=== PATIENT | male | born 1955 | race Caucasian/White ===

== ENCOUNTER 2017-05-30 14:46 | Inpatient (IN) | payer OTHER ==
[~2017-05-30] VITALS: Ht 175.3 cm; Wt 84.1 kg
[2017-05-30] VITALS (12 sets, daily range): BP systolic 112–149; BP diastolic 63–78; PULSE 76–91; RESP 16–20; TEMP 97.5–98.9; O2SAT 98–100
[~2017-05-30 14:46] MED LIST: HUMALOG; LANTUSP SQ; LEVO.125
[2017-05-30] MEDS ORDERED: IOHEXOL 350 MG/ML 10 ML VIAL (for RAD DIAG) IVCONTRAST ONE (14:47)
[2017-05-30 15:40] LABS: AUTOMATED NEUTROPHIL # 1.3 TH/MM3 (1.8-7.7); BASOPHIL % 0.4 % (0.0-2.0); EOSINOPHIL # 0.1 TH/MM3 (0-0.4); EOSINOPHIL % 2.8 % (0.0-4.0); LYMPH % 47.5 % (9.0-44.0); LYMPHOCYTE # 1.3 TH/MM3 (1.0-4.8); MEAN CELL VOLUME 119.9 FL (80.0-100.0); MEAN CORPUSCULAR HEMOGLOBIN 41.5 PG (27.0-34.0); MEAN CORPUSCULAR HGB CONC 34.6 % (32.0-36.0); MEAN PLATELET VOLUME 7.8 FL (7.0-11.0); MONO % 2.8 % (0.0-8.0); MONOCYTE # 0.1 TH/MM3 (0-0.9); NEUT % 46.5 % (16.0-70.0); PLATELET COUNT 127 TH/MM3 (150-450); RED BLOOD COUNT 1.55 MIL/MM3 (4.50-5.90); RED CELL DISTRIBUTION WIDTH 17.9 % (11.6-17.2); WHITE BLOOD COUNT 2.7 TH/MM3 (4.0-11.0)
[2017-05-30 15:53] LABS: HEMOGLOBIN 6.4 GM/DL (13.0-17.0); INTERNATIONAL NORMALIZED RATIO 1.1 RATIO; PROTHROMBIN TIME - PATIENT 11.3 SEC (9.8-11.6)
[2017-05-30 15:54] LABS: HEMATOCRIT 18.6 % (39.0-51.0)
[2017-05-30 16:11] LABS: ALBUMIN 3.4 GM/DL (3.4-5.0); AST (GOT) 77 U/L (15-37); BICARBONATE 26.2 MEQ/L (21.0-32.0); BLOOD UREA NITROGEN 11 MG/DL (7-18); CALCIUM 7.8 MG/DL (8.5-10.1); CHLORIDE 111 MEQ/L (98-107); CREATININE 0.93 MG/DL (0.60-1.30); GLOMERULAR FILTRATION RATE 83 ML/MIN (>89); GLUCOSE,RANDOM 143 MG/DL (74-106); LIPASE 70 U/L (73-393); SODIUM (NA) 143 MEQ/L (136-145)
[2017-05-30 16:15] LABS: ALKALINE PHOSPHATASE 73 U/L (45-117); ALT (GPT) 52 U/L (12-78); TOTAL BILIRUBIN ADULT 1.2 MG/DL (0.2-1.0); TOTAL PROTEIN 5.7 GM/DL (6.4-8.2)
[2017-05-30] MEDS ORDERED: SODIUM CHLOR 0.9% 250 ML INJ 250 ML IV ONE (16:15)
[2017-05-30] MEDS ORDERED: HUMALOG SQ (16:27)
[2017-05-30] MEDS ORDERED: LEVO-86 PO (16:27)
[2017-05-30] MEDS ORDERED: LANTUS2P SQ (16:27)
[2017-05-30 16:40] LABS: KERATOCYTES 1+ (NORMAL); OVALOCYTES 1+ (NORMAL)
--- NOTE | 2017-05-30 17:45 | RADRPT ---
EXAM DATE/TIME: 05/30/2017 17:06 [facility] COMPARISON: No previous studies available for comparison. INDICATIONS : Patient complains of short of breath. IV CONTRAST: 94 cc Omnipaque 350 (iohexol) IV ; Cumulative dose for multiple exams. RADIATION DOSE: 5.23 CTDIvol (mGy) ; Combined studies - Thorax/Abdomen/Pelvis MEDICAL HISTORY : Diabetes mellitus type 1. SURGICAL HISTORY : None. ENCOUNTER: Initial ACUITY: 1 day PAIN SCALE: 0/10 LOCATION: chest TECHNIQUE: Volumetric scanning of the chest was performed. Using automated exposure control and adjustment of t he mA and/or kV according to patient size, radiation dose was kept as low as reasonably achievable to obtain optimal diagnostic quality images. DICOM format image data is available electronically for review and comparison. Follow-up recommendations for detected pulmonary nodules are based at a minimum on nodule size and pa tient risk factors according to Fleischner Society Guidelines. FINDINGS: LUNGS: There is no consolidation or pneumothorax. No concerning pulmonary nodule is visualized. PLEURA: There is no pleural thickening or pleural effusion. MEDIASTINUM: The heart and great vessels demonstrate no acute abnormality. There is no mediastinal or hilar lymph adenopathy. AXILLAE: Within normal limits. No lymphadenopathy. SKELETAL: Within normal limits for patient age. MISCELLANEOUS: The visualized upper abdominal organs demonstrate no acute abnormality. CONCLUSION: Negative for an acute process. I do not see an etiology for the SOB Onesimo Koo MD FACR on May 30, 2017 at 17:41 Board Certified Radiologist. This report was verified electronically.
--- NOTE | 2017-05-30 17:46 | RADRPT ---
EXAM DATE/TIME: 05/30/2017 17:06 [facility] COMPARISON: No previous studies available for comparison. INDICATIONS : Patient complains of short of breath, general wekness. IV CONTRAST: 94 cc Omnipaque 350 (iohexol) IV ; Cumulative dose for multiple exams. ORAL CONTRAST: No oral contrast ingested. RADIATION DOSE: 5.23 CTDIvol (mGy) ; Combined studies - Thorax/Abdomen/Pelvis MEDICAL HISTORY : Diabetes mellitus type 1. SURGICAL HISTORY : None. ENCOUNTER: Initial ACUITY: 1 day PAIN SCALE: 0/10 LOCATION: abdomen TECHNIQUE: Volumetric scanning of the abdomen and pelvis was performed. Using automated exposure control and ad justment of the mA and/or kV according to patient size, radiation dose was kept as low as reasonably achievable to obtain optimal diagnostic quality images. DICOM format image data is available electro nically for review and comparison. FINDINGS: LOWER LUNGS: The visualized lower lungs are clear. LIVER: Homogeneous density without lesion. There is no dilation of the biliary tree. No calcified gallston es. SPLEEN: Normal size without lesion. PANCREAS: Within normal limits. KIDNEYS: Normal in size and shape. There is no mass, stone or hydronephrosis. ADRENAL GLANDS: Within normal limits. VASCULAR: There is no aortic aneurysm. BOWEL/MESENTERY: The stomach, small bowel, and colon demonstrate no acute abnormality. There is no free intraperitone al air or fluid. ABDOMINAL WALL: Within normal limits. RETROPERITONEUM: There is no lymphadenopathy. BLADDER: No wall thickening or mass. REPRODUCTIVE: Small hydrocele on the left. INGUINAL: There is no lymphadenopathy or hernia. MUSCULOSKELETAL: Within normal limits for patient age. CONCLUSION: Negative for acute process. Onesimo Koo MD FACR on May 30, 2017 at 17:42 Board Certified Radiologist. This report was verified electronically.
--- NOTE | 2017-05-30 17:58 | PD ---
HPI Chief Complaint: Abnormal Results Time Seen by Provider: 15:59 Travel History International Travel<30 days: No Contact w/Intl Traveler<30days: No Traveled to known affect area: No History of Present Illness HPI 61-year-old male that presents to the ED for evaluation of low hemoglobin. Per patient he was sent here by Dr. Del Rio for evaluation of anemia. His never been told that he's had this in the past. He denies any bleeding of any kind. Denies any changes in stool. Per patient about a month ago he develops of cold- like symptoms that improved but he continued to have the weakness and shortness of breath with exertion. Per patient he had workup done by his primary care doctor and was told today that he needed to come here to get a blood transfusion. He denies any abdominal pain. No urinary or bowel movement issues. No cough or runny nose. Denies any chest pain versus having some shortness of breath with exertion. Feels some dizziness. Has no allergies to medication. No other medical issues. No headache. No blurred vision and double vision. PFSH Past Medical History Diabetes: Yes Patient Takes Glucophage: No Diminished Hearing: Yes (hearing imparment) Endocrine: Yes Medical other: Yes Immunizations Current: Yes Thyroid Disease: Yes Tetanus Vaccination: > 5 Years Influenza Vaccination: No Past Surgical History Other Surgery: Yes (STEEL PLATE FOOT FX) Social History Alcohol Use: No Tobacco Use: No Substance Use: No Allergies-Medications (Allergen,Severity, Reaction): Coded Allergies: No Known Allergies (Verified Adverse Reaction, Unknown, 05/30/17) Reported Meds & Prescriptions Reported Meds & Active Scripts Active Reported Humalog Inj (Insulin Human Lispro) 1,000 Unit/10 Ml Vial 1-9 Units SQ ACHS Max dose at bedtime:( )units; sugars< 70,(0)units; sugars 150-199,(1)unit; sugars 200-249,(3)units; sugars 250-299,(5)units; sugars 300-349,(7)units; sugars more than 349,(9)units. Synthroid (Levothyroxine Sodium) 137 Mcg Tab 137 Mcg PO DAILY Lantus Inj (Insulin Glargine) 1,000 Unit/10 Ml Vial 20 Units SQ DAILY Review of Systems Except as stated in HPI: all other systems reviewed are Neg Physical Exam Narrative GENERAL: SKIN: Warm and dry. HEAD: Atraumatic. Normocephalic. EYES: Pupils equal and round. No scleral icterus. No injection or drainage. ENT: No nasal bleeding or discharge. Mucous membranes pink and moist. Tongue is midline. No uvula deviation. NECK: Trachea midline. No JVD. CARDIOVASCULAR: Regular rate and rhythm. No murmurs, S3, S4. RESPIRATORY: No accessory muscle use. Clear to auscultation. Breath sounds equal bilaterally. GASTROINTESTINAL: Abdomen soft, non-tender, nondistended. Hepatic and splenic margins not palpable. MUSCULOSKELETAL: Extremities without clubbing, cyanosis, or edema. No obvious deformities. Full range of motion of the upper and lower extremities bilaterally. 2+ pulses bilaterally. NEUROLOGICAL: Awake and alert. No obvious cranial nerve deficits. Motor grossly within normal limits. Five out of 5 muscle strength in the arms and legs. Normal speech. PSYCHIATRIC: Appropriate mood and affect; insight and judgment normal. Data Data Last Documented VS Vital Signs Date Time Temp Pulse Resp B/P (MAP) Pulse Ox O2 Delivery O2 Flow Rate FiO2 05/30/17 17:00 97.8 82 18 112/66 (81) 100 Room Air Orders Orders Complete Blood Count With Diff (05/30/17 15:10) Comprehensive Metabolic Panel (05/30/17 15:10) Lipase (05/30/17 15:10) Prothrombin Time / Inr (Pt) (05/30/17 15:10) Act Partial Throm Time (Ptt) (05/30/17 15:10) Type And Screen (05/30/17 15:10) Ct Thorax/ Chest W Iv Contrast (05/30/17 16:11) Ct Abd/Pel W Iv Contrast(Rout) (05/30/17 16:11) Red Blood Cells (Rbc) (05/30/17 16:12) Blood Product Administration (05/30/17 16:12) Sodium Chlor 0.9% 250 Ml Inj (Ns 250 Ml (05/30/17 16:15) Iohexol 350 Inj (Omnipaque 350 Inj) (05/30/17 14:47) Admit Order (Ed Use Only) (05/30/17 18:07) Labs Laboratory Tests Test 05/30/17 15:19 White Blood Count 2.7 TH/MM3 Red Blood Count 1.55 MIL/MM3 Hemoglobin 6.4 GM/DL Hematocrit 18.6 % Mean Corpuscular Volume 119.9 FL Mean Corpuscular Hemoglobin 41.5 PG Mean Corpuscular Hemoglobin Concent 34.6 % Red Cell Distribution Width 17.9 % Platelet Count 127 TH/MM3 Mean Platelet Volume 7.8 FL Neutrophils (%) (Auto) 46.5 % Lymphocytes (%) (Auto) 47.5 % Monocytes (%) (Auto) 2.8 % Eosinophils (%) (Auto) 2.8 % Basophils (%) (Auto) 0.4 % Neutrophils # (Auto) 1.3 TH/MM3 Lymphocytes # (Auto) 1.3 TH/MM3 Monocytes # (Auto) 0.1 TH/MM3 Eosinophils # (Auto) 0.1 TH/MM3 Basophils # (Auto) 0.0 TH/MM3 CBC Comment AUTO DIFF Differential Comment AUTO DIFF CONFIRMED Platelet Estimate LOW Platelet Morphology Comment NORMAL Ovalocytes 1+ Keratocytes 1+ Prothrombin Time 11.3 SEC Prothromb Time International Ratio 1.1 RATIO Activated Partial Thromboplast Time 21.2 SEC Blood Urea Nitrogen 11 MG/DL Creatinine 0.93 MG/DL Random Glucose 143 MG/DL Total Protein 5.7 GM/DL Albumin 3.4 GM/DL Calcium Level 7.8 MG/DL Alkaline Phosphatase 73 U/L Aspartate Amino Transf (AST/SGOT) 77 U/L Alanine Aminotransferase (ALT/SGPT) 52 U/L Total Bilirubin 1.2 MG/DL Sodium Level 143 MEQ/L Potassium Level 3.7 MEQ/L Chloride Level 111 MEQ/L Carbon Dioxide Level 26.2 MEQ/L Anion Gap 6 MEQ/L Estimat Glomerular Filtration Rate 83 ML/MIN Lipase 70 U/L [facility] Medical Decision Making Medical Screen Exam Complete: Yes Emergency Medical Condition: Yes Medical Record Reviewed: Yes Interpretation(s) CBC & BMP Diagram 05/30/17 15:19 Total Protein 5.7 L, Albumin 3.4, Calcium Level 7.8 L, Alkaline Phosphatase 73, Aspartate Amino Transf (AST/SGOT) 77 H, Alanine Aminotransferase (ALT/SGPT) 52, Total Bilirubin 1.2 H Last Impressions Chest CT 05/30/17 1611 Signed Impressions: Service Date/Time: Tuesday, May 30, 2017 17:06 - CONCLUSION: Negative for an acute process. I do not see an etiology for the SOB Onesimo Koo MD FACR Abdomen/Pelvis CT 05/30/17 1611 Signed Impressions: Service Date/Time: Tuesday, May 30, 2017 17:06 - CONCLUSION: Negative for acute process. Onesimo Koo MD FACR Differential Diagnosis Anemia versus symptomatic anemia versus GI bleed versus normal exam Narrative Course 61-year-old male that presents to the ED for evaluation of anemia. Patient was properly examined and was found to have signs and symptoms consistent with symptomatic anemia. Labs and imaging were ordered. Dr. Sigala wanted CAT scan done. This was ordered. Blood was ordered. This time her conditions for admission for further evaluation. Patient agrees with this. Dr Quezada agrees to admission [facility] Point of Care Internal Pos. & Neg. Controls: Passed Fecal Specimen Occult Blood: Negative Diagnosis Primary Impression: Symptomatic anemia Admitting Information Admitting Physician Requests: Admit Chance Dee May 30, 2017 17:57
--- NOTE | 2017-05-30 20:48 | HHI.HP ---
HPI Service [facility] Hospitalists Primary Care Physician Quintin Sigala MD Admission Diagnosis symptomatic anemia Chief Complaint: Anemia, fatigue, SOB Travel History International Travel<30 Days: No Contact w/Intl Traveler <30 Da: No Traveled to Known Affected Are: No History of Present Illness 61-year-old male with diabetes and hypothyroidism that presents to the ED for evaluation of low hemoglobin. Per patient he was sent here by Dr. Sigala for evaluation of anemia. Patient's hemoglobin was 7 and outpatient labs and he was reportedly asymptomatic. Has not been significantly anemic in the past.. He denies any bleeding of any kind. Denies any changes in stool. Per patient about a month ago he developed cold-like symptoms that improved but he continued to have the weakness and shortness of breath with exertion afterward which is unusual for him. Per patient he was told today that he needed to come here to get a blood transfusion. He denies any abdominal pain. No urinary or bowel movement issues. No cough or runny nose. Denies any chest pain, but has been having some shortness of breath with exertion. Feels some mild dizziness. Has no allergies to medication. No headache. No blurred vision and double vision. Denies regular use of alcohol or nonsteroidals. He is currently receiving packed red blood cell transfusion and appears comfortable. His only complaint presently is that he's hungry. Review of Systems Constitutional: COMPLAINS OF: Fatigue, Dizziness, DENIES: Diaphoretic episodes , Fever, Weight gain, Weight loss, Chills, Change in appetite, Night Sweats Endocrine: DENIES: Heat/cold intolerance, Polydipsia, Polyuria, Polyphagia Eyes: DENIES: Blurred vision, Diplopia, Eye inflammation, Eye pain, Vision loss , Photosensitivity, Double Vision Ears, nose, mouth, throat: DENIES: Tinnitus, Hearing loss, Vertigo, Nasal discharge, Oral lesions, Throat pain, Hoarseness, Ear Pain, Running Nose, Epistaxis, Sinus Pain, Toothache, Odynophagia Respiratory: COMPLAINS OF: Shortness of breath, DENIES: Apneas, Cough, Snoring , Wheezing, Hemoptysis, Sputum production Cardiovascular: COMPLAINS OF: Dyspnea on Exertion, DENIES: Chest pain, Palpitations, Syncope, PND, Lower Extremity Edema, Orthopnea, Claudication Gastrointestinal: DENIES: Abdominal pain, Black stools, Bloody stools, BRB per rectum, Constipation, Diarrhea, GERD, Nausea, Reflux, Vomiting, Difficulty Swallowing, Anorexia, See HPI Musculoskeletal: DENIES: Joint pain, Muscle aches, Stiffness, Joint Swelling, Back pain, Neck pain Integumentary: DENIES: Abnormal pigmentation, Nail changes, Pruritus, Rash Hematologic/lymphatic: DENIES: Bruising, Lymphadenopathy Immunologic/allergic: DENIES: Eczema, Urticaria Neurologic: DENIES: Abnormal gait, Headache, Localized weakness, Paresthesias, Seizures, Speech Problems, Tremor, Poor Balance Psychiatric: DENIES: Anxiety, Confusion, Mood changes, Depression, Hallucinations, Agitation, Suicidal Ideation, Homicidal Ideation, Delusions, History of Bipolar, History of Schizophrenia Past Family Social History Past Medical History Cervical degenerative disc disease Diabetes type 2 with long-term insulin use Fatigue Hypothyroidism Ischemic optic neuropathy right eye Lumbar radiculopathy Past Surgical History Right ankle surgery around 1990 Right cataract surgery Tooth extraction Vasectomy around 1999 Reported Medications Novolog Inj 1,000 Unit/10 Ml Vial 1-9 Units SQ ACHS Max dose at bedtime:( )units; sugars< 70,(0)units; sugars 150-199,(1)unit; sugars 200-249,(3)units; sugars 250-299,(5)units; sugars 300-349,(7)units; sugars more than 349,(9)units. 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 Alert and oriented. Cooperative. SKIN: No rashes, ecchymoses or lesions. Cool and dry. Specifically no petechiae. HEAD: Atraumatic. Normocephalic. No temporal or scalp tenderness. EYES: Pupils equal round and reactive. Extraocular motions intact. No scleral icterus. No injection or drainage. ENT: Nose without bleeding, purulent drainage or septal hematoma. Throat without erythema, tonsillar hypertrophy or exudate. Uvula midline. No petechiae. Airway patent. NECK: Trachea midline. No JVD or lymphadenopathy. Supple, nontender, no meningeal signs. CARDIOVASCULAR: Regular rate and rhythm without gallops, or rubs. Soft 1/6 systolic ejection murmur heard on left sternal border. RESPIRATORY: Clear to auscultation. Breath sounds equal bilaterally. No wheezes , rales, or rhonchi. GASTROINTESTINAL: Abdomen soft, non-tender, nondistended. No hepato-splenomegaly , or palpable masses. No guarding. MUSCULOSKELETAL: Extremities without clubbing, cyanosis, or edema. No joint tenderness, effusion, or edema noted. No calf tenderness. NEUROLOGICAL: Awake and alert. Cranial nerves II through XII intact. Motor and sensory grossly within normal limits. Five out of 5 muscle strength in all muscle groups. Normal speech. Laboratory Laboratory Tests Test 05/30/17 15:19 White Blood Count 2.7 Red Blood Count 1.55 Hemoglobin 6.4 Hematocrit 18.6 Mean Corpuscular Volume 119.9 Mean Corpuscular Hemoglobin 41.5 Mean Corpuscular Hemoglobin Concent 34.6 Red Cell Distribution Width 17.9 Platelet Count 127 Mean Platelet Volume 7.8 Neutrophils (%) (Auto) 46.5 Lymphocytes (%) (Auto) 47.5 Monocytes (%) (Auto) 2.8 Eosinophils (%) (Auto) 2.8 Basophils (%) (Auto) 0.4 Neutrophils # (Auto) 1.3 Lymphocytes # (Auto) 1.3 Monocytes # (Auto) 0.1 Eosinophils # (Auto) 0.1 Basophils # (Auto) 0.0 CBC Comment AUTO DIFF Differential Comment AUTO DIFF CONFIRMED Platelet Estimate LOW Platelet Morphology Comment NORMAL Ovalocytes 1+ Keratocytes 1+ Prothrombin Time 11.3 Prothromb Time International Ratio 1.1 Activated Partial Thromboplast Time 21.2 Blood Urea Nitrogen 11 Creatinine 0.93 Random Glucose 143 Total Protein 5.7 Albumin 3.4 Calcium Level 7.8 Alkaline Phosphatase 73 Aspartate Amino Transf (AST/SGOT) 77 Alanine Aminotransferase (ALT/SGPT) 52 Total Bilirubin 1.2 Sodium Level 143 Potassium Level 3.7 Chloride Level 111 Carbon Dioxide Level 26.2 Anion Gap 6 Estimat Glomerular Filtration Rate 83 Lipase 70 Result Diagram: 05/30/17 1519 05/30/17 1519 Imaging Last [address] 05/30/17 1611 Signed Impressions: Service Date/Time: Tuesday, May 30, 2017 17:06 - CONCLUSION: Negative for an acute process. I do not see an etiology for the SOB Onesimo Koo MD FACR Abdomen/Pelvis CT 05/30/171610 Signed Impressions: Service Date/Time: Tuesday, May 30, 2017 17:06 - CONCLUSION: Negative for acute process. Onesimo Koo MD FACR Caprini VTE Risk Assessment Caprini VTE Risk Assessment: Mod/High Risk (score >= 2) Caprini Risk Assessment Model Point Value = 1 Point Value = 2 Point Value = 3 Point Value = 5 Age 41-60 Minor surgery BMI > 25 kg/m2 Swollen legs Varicose veins or History of unexplained or recurrent spontaneous Oral contraceptives or hormone replacement Sepsis (< 1 month) Serious lung disease, including pneumonia (< 1 month) Abnormal pulmonary function Acute myocardial infarction Congestive heart failure (< 1 month) History of inflammatory bowel disease Medical patient at bed rest Age 61-74 Arthroscopic surgery Major open surgery (> 45 min) Laparoscopic surgery (> 45 min) Malignancy Confined to bed (> 72 hours) Immobilizing plaster cast Central venous access Age >= 75 History of VTE Family history of VTE Factor V Leiden Prothrombin 30058P Lupus anticoagulant Anticardiolipin antibodies Elevated serum homocysteine Heparin-induced thrombocytopenia Other congenital or acquired thrombophilia Stroke (< 1 month) Elective arthroplasty Hip, pelvis, or leg fracture Acute spinal cord injury (< 1 month) Prophylaxis Regimen Total Risk Factor Score Risk Level Prophylaxis Regimen 0-1 Low Early ambulation 2 Moderate Order ONE of the following: *Sequential Compression Device (SCD) *Heparin 5000 units SQ BID 3-4 Higher Order ONE of the following medications: *Heparin 5000 units SQ TID *Enoxaparin/Lovenox 40 mg SQ daily (WT < 150 kg, CrCl > 30 mL/min) *Enoxaparin/Lovenox 30 mg SQ daily (WT < 150 kg, CrCl > 10-29 mL/min) *Enoxaparin/Lovenox 30 mg SQ BID (WT < 150 kg, CrCl > 30 mL/min) AND/OR *Sequential Compression Device (SCD) 5 or more Highest Order ONE of the following medications: *Heparin 5000 units SQ TID (Preferred with Epidurals) *Enoxaparin/Lovenox 40 mg SQ daily (WT < 150 kg, CrCl > 30 mL/min) *Enoxaparin/Lovenox 30 mg SQ daily (WT < 150 kg, CrCl > 10-29 mL/min) *Enoxaparin/Lovenox 30 mg SQ BID (WT < 150 kg, CrCl > 30 mL/min) AND *Sequential Compression Device (SCD) Assessment and Plan Problem List: (1) Symptomatic anemia ICD Codes: D64.9 - Anemia, unspecified Status: Acute Plan: Question of etiology. Rectal exam negative for heme per ER provider. He has not had a colonoscopy in approximately 15 years per outside note review. Have GI see the patient but will also have hematology evaluation given the pancytopenia as GI likely not a primary source. Outpatient EMR review reveals hemoglobin of 12 in November 2016, 11 in January 2017 and 7 on May 27, 2017 (2) Pancytopenia ICD Codes: D61.818 - Other pancytopenia Status: Acute Plan: As above. 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 We'll provide low-dose basal insulin as well. (4) Hypothyroidism ICD Codes: E03.9 - Hypothyroidism, unspecified Status: Chronic Plan: TSH somewhat suppressed at 0.121 on recent labs however T4 is typically normal and managed by Endo. Check TSH and T4 here. Code Status full Discussed Condition With Patient, his and ER provider Physician Certification 2 Midnight Certification Type: Admission for Inpatient Services Order for Inpatient Services The services are ordered in accordance with Medicare regulations or non- Medicare payer requirements, as applicable. In the case of services not specified as inpatient-only, they are appropriately provided as inpatient services in accordance with the 2-midnight benchmark. Estimated LOS (days): 2 days is the estimated time the patient will need to remain in the hospital, assuming treatment plan goals are met and no additional complications. Post-Hospital Plan: Home Rojas Quezada MD PhD May 30, 2017 20:48
[2017-05-30] MEDS: INSULIN ASPART SUPPLEMENTAL SCALE SQ SCH (21:00)
[2017-05-30] MEDS: INSULIN DETEMIR 100 UNITS/ML VIAL SQ SCH (21:00)
[2017-05-30] MEDS ORDERED: DEXTROSE 50% IN WATER 50 ML VIAL(D50) IV PUSH PRN (21:15)
[2017-05-30] MEDS ORDERED: GLUCAGON 1 MG/ML VIAL OTHER PRN (21:15)
[2017-05-30 22:00] LABS: FREE T4 1.4 NG/DL (0.76-1.46)
[2017-05-30 22:10] LABS: RETIC # 43.3 MIL/L (20.0-150.0)
[2017-05-30 22:17] LABS: FOLATE GREATER THAN 20.0 NG/ML (3.1-17.5)
[2017-05-30 22:30] LABS: LDH SERUM 3181 U/L (87-241)
[2017-05-31] VITALS (10 sets, daily range): BP systolic 119–153; BP diastolic 62–85; PULSE 67–78; RESP 14–20; TEMP 97.8–98.9; O2SAT 94–99
[2017-05-31] MEDS: LEVOTHYROXINE SODIUM 112 MCG TAB PO SCH (05:05)
[2017-05-31] MEDS: LEVOTHYROXINE SODIUM 25 MCG TAB PO SCH (05:06)
[2017-05-31] MEDS: INSULIN ASPART SUPPLEMENTAL SCALE SQ SCH ×4 (08:00→21:20)
[2017-05-31 08:34] LABS: AUTOMATED NEUTROPHIL # 1.4 TH/MM3 (1.8-7.7); BASOPHIL % 0.1 % (0.0-2.0); EOSINOPHIL # 0.2 TH/MM3 (0-0.4); EOSINOPHIL % 4.5 % (0.0-4.0); HEMATOCRIT 23.8 % (39.0-51.0); HEMOGLOBIN 8.5 GM/DL (13.0-17.0); LYMPH % 50.3 % (9.0-44.0); LYMPHOCYTE # 1.7 TH/MM3 (1.0-4.8); MEAN CELL VOLUME 101.7 FL (80.0-100.0); MEAN CORPUSCULAR HEMOGLOBIN 36.1 PG (27.0-34.0); MEAN CORPUSCULAR HGB CONC 35.5 % (32.0-36.0); MEAN PLATELET VOLUME 8.2 FL (7.0-11.0); MONO % 2.7 % (0.0-8.0); MONOCYTE # 0.1 TH/MM3 (0-0.9); NEUT % 42.4 % (16.0-70.0); PLATELET COUNT 98 TH/MM3 (150-450); RED BLOOD COUNT 2.34 MIL/MM3 (4.50-5.90); RED CELL DISTRIBUTION WIDTH 32.6 % (11.6-17.2); WHITE BLOOD COUNT 3.4 TH/MM3 (4.0-11.0)
[2017-05-31] MEDS: INSULIN DETEMIR 100 UNITS/ML VIAL SQ SCH (08:44)
[2017-05-31] MEDS ORDERED: CYANOCOBALAMIN 1000 MCG/ML VIAL IM ONE (09:00)
[2017-05-31 09:09] LABS: AST (GOT) 72 U/L (15-37); BLOOD UREA NITROGEN 10 MG/DL (7-18); CALCIUM 7.8 MG/DL (8.5-10.1); CHLORIDE 106 MEQ/L (98-107); CREATININE 0.87 MG/DL (0.60-1.30); GLOMERULAR FILTRATION RATE 89 ML/MIN (>89); GLUCOSE,RANDOM 199 MG/DL (74-106); SODIUM (NA) 138 MEQ/L (136-145)
[2017-05-31 09:10] LABS: ALT (GPT) 43 U/L (12-78)
[2017-05-31 09:13] LABS: ALKALINE PHOSPHATASE 64 U/L (45-117); TOTAL BILIRUBIN ADULT 1.4 MG/DL (0.2-1.0); TOTAL PROTEIN 4.9 GM/DL (6.4-8.2)
[2017-05-31 09:17] LABS: OVALOCYTES 1+ (NORMAL); TEARDROP RBCS 1+ (NORMAL)
--- NOTE | 2017-05-31 10:55 | HHI.PR ---
Subjective Remarks feels stronger. eager for d/c Objective Vitals heart reg lung cta abd s/nt ext no edema Vital Signs Date Time Temp Pulse Resp B/P (MAP) Pulse Ox O2 Delivery O2 Flow Rate FiO2 05/31/17 08:00 97.9 75 20 137/68 (91) 97 05/31/17 04:00 Room Air 05/31/17 04:00 98.1 78 20 150/85 (106) 99 05/31/17 03:48 74 05/31/17 00:00 98.9 76 14 132/62 (85) 97 05/31/17 00:00 98.9 76 14 132/62 97 05/31/17 00:00 Room Air 05/30/17 23:47 78 05/30/17 22:19 77 05/30/17 21:40 Room Air 05/30/17 21:40 97.5 76 20 139/71 (93) 98 05/30/17 21:40 98.1 80 18 127/78 99 05/30/17 21:39 80 18 127/78 (94) 99 Room Air 05/30/17 21:37 05/30/17 21:14 81 18 133/71 (91) 99 Room Air 05/30/17 21:11 98.3 79 18 133/71 99 05/30/17 20:46 98.4 79 18 134/63 (86) 98 Room Air 05/30/17 19:55 81 18 149/70 (96) 99 Room Air 05/30/17 19:44 98.3 81 20 149/70 99 05/30/17 18:49 97.8 80 16 132/77 (95) 99 Room Air 05/30/17 17:00 97.8 82 18 112/66 (81) 100 Room Air 05/30/17 16:45 84 18 100 Room Air 05/30/17 14:48 98.9 91 18 137/63 (87) 100 Room Air Result Diagram: 05/31/17 0720 05/31/17 0720 Imaging Last [address] 05/30/17 161 Signed Impressions: Service Date/Time: Tuesday, May 30, 2017 17:06 - CONCLUSION: Negative for an acute process. I do not see an etiology for the SOB Onesimo Koo MD FACR Abdomen/Pelvis CT 05/30/17 1611 Signed Impressions: Service Date/Time: Tuesday, May 30, 2017 17:06 - CONCLUSION: Negative for acute process. Onesimo Koo MD FACR A/P Problem List: (1) Pancytopenia ICD Codes: D61.818 - Other pancytopenia Status: Acute Plan: 1. new pancytopenia. symptomatic anemia anemia is macrocytic. guiac neg. denies any new medications. severe b12 def identified and evidence for hemolysis on labs with elevated bili/ldh/low haptoglobin. ?hemolysis related to severe b12. unclear why he has b12 def. Denies hx of celiac dz/gastric surgery/crohns disease. mother also required b12 shots. b12 shots initiated. will need to arrange outpt b12 injections f/u peripheral smear, iron studies, IF ab's. pt to be seen by hem/onc to decide if any further w/up needs to be done while admitted and then close f/u. s/p 2 units blood. feels much better. (2) Diabetes mellitus with insulin therapy ICD Codes: E11.9 - Diabetes mellitus with insulin therapy; Z79.4 - medical terminologist ( current) use of insulin Status: Chronic Plan: initiate home basal insulin and ssi nurse called and said pt took his own insulin w/out our knowledge. (3) Hypothyroidism ICD Codes: E03.9 - Hypothyroidism, unspecified Status: Chronic Nik Delcid MD May 31, 2017 10:54
[2017-05-31] MEDS ORDERED: NOVOLOGP2 SQ (11:24)
[2017-05-31 11:44] LABS: HEPATITIS A AB IGM NEGATIVE (NEGATIVE); HEPATITIS B CORE AB IGM NEGATIVE (NEGATIVE); HEPATITIS B SURFACE ANTIGEN NEGATIVE (NEGATIVE); HEPATITIS C AB IgG NEGATIVE (NEGATIVE)
--- NOTE | 2017-05-31 11:50 | PD.CONS ---
HPI History of Present Illness This is a 61 year old male with IDDM, hypothyroid who presented with anemia. One month ago he experience URI like symptoms for about a week and then continued to feel fatigue, dizziness, and worsening SOB. "I felt like I was gonna ." He went to see his PCP who did labwork and advised him to come to ER. Admits decreased appetite for the last month and thinks he may have lost 8- 9 lbs in the last 2 months. Admits bilat ankle swelling the last 1-2 months at the end of the day. He denies obvious bleeding - no blood in urine or stool, no black tarry stool. Denies abd pain, n/v. Denies tingling in digits, fevers, hx gastric ulcers, juandice. Drinks etoh rarely, denies any hx heavy drinking. Pt and think he had colonoscopy here 5 years ago but I do not see this in EMR. Per EMR in 2002 he had heme positive stool and had a normal EGD and a colonoscopy with finding internal hemorrhoid, stool in cecum, otherwise normal. (Jamila Albarran) PFSH Past Medical History DM hypothyroid Past Surgical History ORIF right ankle (Jamila Albarran) Coded Allergies: No Known Allergies (Verified Allergy, Unknown, 05/30/17) Family History lupus - sister Social History rare ETOH no tobacco or illicit drug use (Jamila Albarran) Review of Systems Constitutional: COMPLAINS OF: Weight loss, DENIES: Fever Eyes: DENIES: Blurred vision Ears, nose, mouth, throat: DENIES: Hearing loss Respiratory: DENIES: Cough Cardiovascular: DENIES: Chest pain Gastrointestinal: COMPLAINS OF: Anorexia, DENIES: Abdominal pain, Black stools , Bloody stools, Constipation, Diarrhea, Nausea, Vomiting, Hematemesis Genitourinary: DENIES: Hematuria Musculoskeletal: DENIES: Joint Swelling Integumentary: DENIES: Jaundice Hematologic/lymphatic: DENIES: Bruising Neurologic: DENIES: Abnormal gait Psychiatric: DENIES: Confusion (Jamila Albarran) GI Exam Vitals I&O Vital Signs Date Time Temp Pulse Resp B/P (MAP) Pulse Ox O2 Delivery O2 Flow Rate FiO2 05/31/17 08:00 97.9 75 20 137/68 (91) 97 05/31/17 04:00 Room Air 05/31/17 04:00 98.1 78 20 150/85 (106) 99 05/31/17 03:48 74 05/31/17 00:00 98.9 76 14 132/62 (85) 97 05/31/17 00:00 98.9 76 14 132/62 97 05/31/17 00:00 Room Air 05/30/17 23:47 78 05/30/17 22:19 77 05/30/17 21:40 Room Air 05/30/17 21:40 97.5 76 20 139/71 (93) 98 05/30/17 21:40 98.1 80 18 127/78 99 05/30/17 21:39 80 18 127/78 (94) 99 Room Air 05/30/17 21:37 05/30/17 21:14 81 18 133/71 (91) 99 Room Air 05/30/17 21:11 98.3 79 18 133/71 99 05/30/17 20:46 98.4 79 18 134/63 (86) 98 Room Air 05/30/17 19:55 81 18 149/70 (96) 99 Room Air 05/30/17 19:44 98.3 81 20 149/70 99 05/30/17 18:49 97.8 80 16 132/77 (95) 99 Room Air 05/30/17 17:00 97.8 82 18 112/66 (81) 100 Room Air 05/30/17 16:45 84 18 100 Room Air 05/30/17 14:48 98.9 91 18 137/63 (87) 100 Room Air I/O 05/30/17 05/30/17 05/30/17 05/31/17 05/31/17 05/31/17 07:00 15:00 23:00 07:00 15:00 23:00 Intake Total 910 ml 430 ml Output Total 250 ml Balance 660 ml 430 ml Intake Oral 240 ml Packed Cells 640 ml 400 ml Blood Product IV Normal Saline Flush 30 ml 30 ml Output Urine Total 250 ml Imaging Last Impressions Chest CT 05/30/17 1611 Signed Impressions: Service Date/Time: Tuesday, May 30, 2017 17:06 - CONCLUSION: Negative for an acute process. I do not see an etiology for the SOB Onesimo Koo MD FACR Abdomen/Pelvis CT 05/30/17 1611 Signed Impressions: Service Date/Time: Tuesday, May 30, 2017 17:06 - CONCLUSION: Negative for acute process. Onesimo Koo MD FACR Laboratory Test 05/30/17 15:19 05/30/17 21:30 05/31/17 07:20 White Blood Count 2.7 TH/MM3 3.4 TH/MM3 Red Blood Count 1.55 MIL/MM3 2.34 MIL/MM3 Hemoglobin 6.4 GM/DL 8.5 GM/DL Hematocrit 18.6 % 23.8 % Mean Corpuscular Volume 119.9 FL 101.7 FL Mean Corpuscular Hemoglobin 41.5 PG 36.1 PG Mean Corpuscular Hemoglobin Concent 34.6 % 35.5 % Red Cell Distribution Width 17.9 % 32.6 % Platelet Count 127 TH/MM3 98 TH/MM3 Mean Platelet Volume 7.8 FL 8.2 FL Neutrophils (%) (Auto) 46.5 % 42.4 % Lymphocytes (%) (Auto) 47.5 % 50.3 % Monocytes (%) (Auto) 2.8 % 2.7 % Eosinophils (%) (Auto) 2.8 % 4.5 % Basophils (%) (Auto) 0.4 % 0.1 % Neutrophils # (Auto) 1.3 TH/MM3 1.4 TH/MM3 Lymphocytes # (Auto) 1.3 TH/MM3 1.7 TH/MM3 Monocytes # (Auto) 0.1 TH/MM3 0.1 TH/MM3 Eosinophils # (Auto) 0.1 TH/MM3 0.2 TH/MM3 Basophils # (Auto) 0.0 TH/MM3 0.0 TH/MM3 CBC Comment AUTO DIFF AUTO DIFF Differential Comment AUTO DIFF CONFIRMED AUTO DIFF CONFIRMED Platelet Estimate LOW LOW Platelet Morphology Comment NORMAL NORMAL Ovalocytes 1+ 1+ Keratocytes 1+ Prothrombin Time 11.3 SEC Prothromb Time International Ratio 1.1 RATIO Activated Partial Thromboplast Time 21.2 SEC Blood Urea Nitrogen 11 MG/DL 10 MG/DL Creatinine 0.93 MG/DL 0.87 MG/DL Random Glucose 143 MG/DL 199 MG/DL Total Protein 5.7 GM/DL 4.9 GM/DL Albumin 3.4 GM/DL 3.0 GM/DL Calcium Level 7.8 MG/DL 7.8 MG/DL Alkaline Phosphatase 73 U/L 64 U/L Aspartate Amino Transf (AST/SGOT) 77 U/L 72 U/L Alanine Aminotransferase (ALT/SGPT) 52 U/L 43 U/L Total Bilirubin 1.2 MG/DL 1.4 MG/DL Sodium Level 143 MEQ/L 138 MEQ/L Potassium Level 3.7 MEQ/L 4.2 MEQ/L Chloride Level 111 MEQ/L 106 MEQ/L Carbon Dioxide Level 26.2 MEQ/L 24.0 MEQ/L Anion Gap 6 MEQ/L 8 MEQ/L Estimat Glomerular Filtration Rate 83 ML/MIN 89 ML/MIN Lactate Dehydrogenase 3181 U/L Lipase 70 U/L Vitamin B12 Level LESS THAN 60 PG/ML Folate GREATER THAN 20.0 NG/ML Free Thyroxine 1.40 NG/DL Thyroid Stimulating Hormone 3rd Gen 0.021 uIU/ML Reticulocyte Count 2.0 % Absolute Reticulocyte Count 43.3 MIL/L Haptoglobin LESS THAN 8 MG/DL Tear Drop Cells 1+ Blood Smear Pathologist Review Physical Examination HEENT: PERRL; normocephalic; atraumatic; no jaundice. CHEST: CTA CARDIAC: RRR ABDOMEN: Soft, mildly distended, nontender; no hepatosplenomegaly; bowel sounds are present in all four quadrants. EXTREMITIES: No clubbing, cyanosis, +BLE edema. SKIN: Normal; no rash; no jaundice. MASTER ESTHETICIAN: No focal deficits; alert and oriented times three. (Jamila AlbarranP) Assessment and Plan Plan ASSESSMENT - anemia - symptomatic, hgb 6.4 on admission, macrocytic and does have b12 deficiency. no obvious bleed. Per EMR pt had EGD/colonoscopy 2002 for heme pos stool and EGD was normal, colonoscopy found internal hemorrhoid and stool in cecum. rectal exam in ER neg for blood. CT abd neg. anemia could be multifactorial. he is feeling somewhat better after 2X PRBC. d/w pt EGD and colonoscopy to r/o GIB, he is hesitant and wishes to speak with roller shop utility worker first - mildly elevated AST, tbil - unclear significance. pt denies excessive use ETOH or hx heavy drinking. hep panel pending, iron studies pending, will get rest of liver w/u and fractionated bili - pancytopenia - unclear etiology, hematology consult pending. smear path review pending. PLAN - consider EGD and colonoscopy, timing TBD - await hematology consult - fractionated bilirubin - await hep panel - await iron studies - will get RAMIRO, AMA, ASMA, A1A, AFP, ceruloplasmin - further recs as case unfolds pt seen by myself and DR Guerra and this note is written on his behalf (Jamila Albarran) Physician Comments Seen and examined with PET AMBASSADOR, no active bleeding. Offered pt. egd/colonoscopy but he wishes to wait on hematology prior to proceeding with any further leija. He is overdue for a colonoscopy anyways. Monitor labs. Will proceed with gi leija once pt. agrees. CT normal, no evidence of liver cirrhosis. Will follow, thankyou (Patricia Guerra MD) Jamila Albarran May 31, 2017 11:50 Patricia Guerra MD May 31, 2017 18:22
[2017-05-31 12:21] LABS: % SATURATION IRON PROFILE 89.4 % (20-50); IRON (FE) 184 MCG/DL (65-175); TOTAL IRON BINDING CAPACITY 206 MCG/DL (250-450)
[2017-05-31 12:23] LABS: FERRITIN 536 NG/ML (26-388)
[2017-05-31] MEDS ORDERED: diphenhydrAMINE HCL 25 MG CAP PO PRN (20:00)
[2017-05-31] MEDS ORDERED: ACETAMINOPHEN 325 MG TAB PO PRN (20:00)
[2017-05-31] MEDS ORDERED: SODIUM CHLOR 0.9% 250 ML INJ 250 ML IV ONE (20:00)
--- NOTE | 2017-05-31 21:09 | MB ---
cc: DAVIAN QUEZADA RUBY ANNE E. M.D. DATE OF CONSULTATION 05/31/17 [address] Quezada CHIEF COMPLAINT Dr. Quezada requests a consultation for Mr. Polanco regarding pancytopenia. HISTORY OF PRESENT ILLNESS Mr. Polanco is a 61-year-old man with a long history of diabetes, hypothyroidism. He is insulin-requiring. He is stable from his diabetes standpoint, denies any eye or kidney problems. Denies any peripheral neuropathy. He is recovering from an upper respiratory infection or a flu-like symptom after Hannah. It took him a long time to get over the condition. He has felt listless for the weeks following. Typically, he is active and energetic. He had laboratory work done by Dr. Sigala who found him to be significantly anemic and have laboratory abnormalities different from his baseline. He was referred to come to the emergency room for admission. Review of the electronic medical record shows a normal CBC in 2006. In 2014, he had a mild macrocytosis and a platelet count of 235, white blood cell count normal. On admission, his white blood cell count is 2.7, hemoglobin of 6.4, MCV 119, platelet count 127. Heme platelet volume is 7.8. His absolute neutrophil count is 1300. There are ___cytes, cytes. His haptoglobin is low. His LDH is significantly elevated at 3181. Iron studies show acute phase reactant when ferritin is elevated. His renal function is normal. Bilirubin is 1.4. Vitamin B12 was low less than 60. TSH is normal. REVIEW OF SYSTEMS Denies any fevers. Describes some early satiety. He has had some weight loss. He denies any melena or bright red blood per rectum. He noticed that his urine is orange in color. He denies any sick contact. He has excellent family support. His was at bedside at the time of the consultation. PAST MEDICAL HISTORY 1. Cervical degenerative disk disease, 2. Diabetes type 2 with oil heaterman insulin use times 20 years 3. Fatigue x2 weeks, 4. Hypothyroidism 5. Ischemic optic neuropathy right eye 6. Lumbar radiculopathy 7. Macrocytic anemia 8. B12 deficiency 9. Pancytopenia 10. Hyperbilirubinemia. PAST SURGICAL HISTORY 1. Right ankle surgery 2. Right cataract surgery. 3. Tooth extraction 4. Vasectomy. FAMILY HISTORY Sister with lupus. No family history of cancer. Father had had diabetes and mother is alive and well. SOCIAL HISTORY Denies any tobacco use. He drinks 1-2 alcoholic beverages per month. He is , lives with his . ALLERGIES NO KNOWN DRUG ALLERGIES. MEDICATIONS 1. Novolog 2. Synthroid 3. Lantus PHYSICAL EXAMINATION VITAL SIGNS: Temperature of 98.7, heart rate 74, respiratory rate 20, blood pressure 152/78, saturation 96%. GENERAL: Mr. Polanco is a well-developed, well-nourished man who looks his stated age. HEENT: His pupils are round, reactive to light and accommodation. Oropharynx is clear. Conjunctivae are pale. NECK: Supple with no adenopathy. LUNGS: Clear. CARDIOVASCULAR: Normal rate, rhythm. ABDOMEN: Benign. No splenomegaly appreciated. LOWER EXTREMITIES: Trace edema. He has chronic changes associated with right ankle from previous injury. ASSESSMENT/PLAN Mr. Polanco is a 61-year-old man with a long history of diabetes. Review of the electronic medical record shows anemia, microcytic in nature, dating back to 2014. He denies any neurologic deficit to suggest a B12 deficiency, but his serum B12 level is quite low. We discussed the differential for the hemolysis to include TTP. This would explain the anemia. the low haptoglobin, increased LDH and bilirubin. His renal function is preserved which argues against TTP. His coagulation profile is normal. A Will test will be checked. He has been transfused 2 units of packed red cells. He tolerated the transfusion well. Blood bank antibody screen is negative so far. We discussed possibility of underlying bone marrow disorder such as myelodysplasia or transformation to acute leukemia. The LDH is concerning for both TTP versus a bone marrow disorder. We considered possibility of B12 deficiency leading to the pancytopenia. B12 will be replaced promptly. Loading dose is going to be administered. I am unable to exclude thrombotic thrombocytopenic purpura. Peripheral smear will be reviewed. We will check his response to the FFP and B12 overnight. Vásquez 13 will be sent. If he shows response to the FFP, we will proceed with plasmapheresis in the morning. We discussed the risk and benefit of bone marrow biopsy procedure. There are changes found in bone marrow that are consistent with TTP or a thrombotic microangiopathic hemolytic process. We would also be able to exclude underlying bone marrow problems such as myelodysplasia versus acute myelogenous leukemia. The above was discussed at length with Mr. Polanco. If he does respond to the FFP infusion with decrease in his LDH or increase in his platelet counts. We will proceed with pheresis. He will need a catheter. His questions were answered to his satisfaction. MD FORD Chen/ /8:22 PM /8:46 PM
[2017-05-31 21:50] LABS: BASOPHIL % 0.3 % (0.0-2.0); EOSINOPHIL # 0.2 TH/MM3 (0-0.4); EOSINOPHIL % 5.6 % (0.0-4.0); HEMATOCRIT 26.8 % (39.0-51.0); HEMOGLOBIN 9.2 GM/DL (13.0-17.0); LYMPH % 58.5 % (9.0-44.0); LYMPHOCYTE # 1.8 TH/MM3 (1.0-4.8); MEAN CELL VOLUME 102.2 FL (80.0-100.0); MEAN CORPUSCULAR HEMOGLOBIN 35.2 PG (27.0-34.0); MEAN CORPUSCULAR HGB CONC 34.4 % (32.0-36.0); MEAN PLATELET VOLUME 8.6 FL (7.0-11.0); MONO % 2.8 % (0.0-8.0); MONOCYTE # 0.1 TH/MM3 (0-0.9); NEUT % 32.8 % (16.0-70.0); PLATELET COUNT 110 TH/MM3 (150-450); RED BLOOD COUNT 2.62 MIL/MM3 (4.50-5.90); WHITE BLOOD COUNT 3.1 TH/MM3 (4.0-11.0)
[2017-05-31 22:03] LABS: INTERNATIONAL NORMALIZED RATIO 1.1 RATIO; PROTHROMBIN TIME - PATIENT 11.1 SEC (9.8-11.6)
[2017-05-31 22:28] LABS: CORRECTED NUCLEATED RBC 3 /100 WBC (0-0); LYMPHOCYTES 43 % (9-44); MONOCYTES 1 % (0-8); MYELOCYTES 1 % (0-0); NEUTROPHIL # MANUAL DIFF 1.5 TH/MM3 (1.8-7.7); NUCLEATED RED BLOOD CELL 3 (0-0); POLYS (SEG NEUTROPHILS) 46 % (16-70)
[2017-05-31 22:30] LABS: ACANTHOCYTES 1+ (NORMAL); SPHEROCYTES 1+ (NORMAL)
[2017-05-31 22:31] LABS: TOXIC GRANULATION 1+ (NORMAL)
[2017-06-01] VITALS (21 sets, daily range): BP systolic 115–183; BP diastolic 62–98; PULSE 18–93; RESP 16–20; TEMP 97.4–98.4; O2SAT 94–100
[2017-06-01] MEDS: LEVOTHYROXINE SODIUM 112 MCG TAB PO SCH (05:49)
[2017-06-01] MEDS: LEVOTHYROXINE SODIUM 25 MCG TAB PO SCH (05:49)
[2017-06-01] MEDS: INSULIN ASPART SUPPLEMENTAL SCALE SQ SCH ×4 (07:59→21:42)
[2017-06-01] MEDS: predniSONE 20 MG TAB PO SCH ×2 (08:02→21:41)
[2017-06-01] MEDS: INSULIN DETEMIR 100 UNITS/ML VIAL SQ SCH (08:03)
[2017-06-01] MEDS ORDERED: INSULIN DETEMIR 100 UNITS/ML VIAL SQ SCH (09:00)
[2017-06-01] MEDS ORDERED: CYANOCOBALAMIN 1000 MCG/ML VIAL IM ONE (09:00)
[2017-06-01 09:38] LABS: AUTOMATED NEUTROPHIL # 1.4 TH/MM3 (1.8-7.7); BASOPHIL % 0.3 % (0.0-2.0); EOSINOPHIL # 0.1 TH/MM3 (0-0.4); EOSINOPHIL % 4.4 % (0.0-4.0); HEMOGLOBIN 8.5 GM/DL (13.0-17.0); LYMPH % 50.6 % (9.0-44.0); LYMPHOCYTE # 1.7 TH/MM3 (1.0-4.8); MEAN CELL VOLUME 101.7 FL (80.0-100.0); MEAN CORPUSCULAR HEMOGLOBIN 36.1 PG (27.0-34.0); MEAN CORPUSCULAR HGB CONC 35.5 % (32.0-36.0); MONO % 4.1 % (0.0-8.0); MONOCYTE # 0.1 TH/MM3 (0-0.9); NEUT % 40.6 % (16.0-70.0); PLATELET COUNT 105 TH/MM3 (150-450); RED BLOOD COUNT 2.36 MIL/MM3 (4.50-5.90); RED CELL DISTRIBUTION WIDTH 32.4 % (11.6-17.2); WHITE BLOOD COUNT 3.3 TH/MM3 (4.0-11.0)
--- NOTE | 2017-06-01 09:43 | HHI.PR ---
Subjective Remarks doing ok. no new problems Objective Vitals heart reg lung cta abd s/nt ext no edema Vital Signs Date Time Temp Pulse Resp B/P (MAP) Pulse Ox O2 Delivery O2 Flow Rate FiO2 06/01/17 09:22 97.8 70 16 141/83 99 06/01/17 09:04 97.9 68 16 152/79 100 06/01/17 08:15 Room Air 06/01/17 08:13 93 06/01/17 05:55 97.8 74 18 124/66 96 06/01/17 05:37 97.8 73 18 133/76 98 06/01/17 04:00 97.8 75 18 128/77 (94) 98 06/01/17 04:00 Room Air 06/01/17 03:47 76 06/01/17 02:44 98.3 78 18 115/62 95 06/01/17 02:34 98.3 80 18 119/66 96 06/01/17 02:30 98.3 72 18 119/67 97 06/01/17 00:30 Room Air 06/01/17 00:16 98.0 62 18 120/74 96 06/01/17 00:16 98.0 62 18 120/74 96 06/01/17 00:00 69 05/31/17 23:57 97.8 67 18 119/78 97 05/31/17 23:55 97.8 67 18 119/78 (92) 97 05/31/17 20:00 97.9 73 18 135/72 (93) 94 05/31/17 20:00 Room Air 05/31/17 19:48 74 05/31/17 16:00 74 05/31/17 16:00 98.7 75 20 153/78 (103) 96 05/31/17 12:00 98.7 75 20 150/68 (95) 99 05/31/17 12:00 73 06/01/17 06/01/17 06/02/17 15:00 23:00 07:00 Intake Total 321 ml Balance 321 ml FFP 301 ml Blood Product IV Normal Saline Flush 20 ml Result Diagram: 05/31/17201205/31/17 0720 Imaging Last [address] 05/30/17 1611 Signed Impressions: Service Date/Time: Tuesday, May 30, 2017 17:06 - CONCLUSION: Negative for an acute process. I do not see an etiology for the SOB Onesimo Koo MD FACR Abdomen/Pelvis CT 05/30/17 1611 Signed Impressions: Service Date/Time: Tuesday, May 30, 2017 17:06 - CONCLUSION: Negative for acute process. Onesimo Koo MD FACR A/P Problem List: (1) Pancytopenia ICD Codes: D61.818 - Other pancytopenia Status: Acute Plan: 1. new pancytopenia. symptomatic anemia anemia is macrocytic. guiac neg. denies any new medications. hematology wants to exclude mds/acute leukemia/ttp severe b12 def identified and evidence for hemolysis on labs with elevated bili/ldh/low haptoglobin. ?hemolysis related to severe b12. unclear why he has b12 def. Denies hx of celiac dz/gastric surgery/crohns disease. mother also required b12 shots. s/p 2 units blood 05/30. feels much better. s/p 4 units ffp 06/01 bone marrow bx pending and trial of ffp per Dr Soto b12 shots initiated. will need to arrange outpt b12 injections f/u pending labs (2) Diabetes mellitus with insulin therapy ICD Codes: E11.9 - Diabetes mellitus with insulin therapy; Z79.4 - penitentiary ( current) use of insulin Status: Chronic Plan: initiate home basal insulin and ssi (3) Hypothyroidism ICD Codes: E03.9 - Hypothyroidism, unspecified Status: Chronic Nik Delcid MD Jun 01, 2017 09:43
[2017-06-01 10:05] LABS: DIRECT BILIRUBIN ADULT 0.3 MG/DL (0.0-0.2)
[2017-06-01 10:14] LABS: INDIRECT BILIRUBIN 1.1 MG/DL (0.0-0.8); TOTAL BILIRUBIN ADULT 1.4 MG/DL (0.2-1.0)
--- NOTE | 2017-06-01 10:40 | PD.ONC.PN ---
Subjective Subjective Remarks Afebrile overnight. Patient resting in room waiting for bone marrow biopsy. Denies any bleeding. Reports that he feels like he is getting hypoglycemic as he has been fasting all morning. Worried that he will become hypoglycemic before his bone marrow biopsy this afternoon. Objective Data Date Time Temp Pulse Resp B/P (MAP) Pulse Ox O2 Delivery O2 Flow Rate FiO2 06/01/17 09:22 97.8 70 16 141/83 99 06/01/17 09:04 97.9 68 16 152/79 100 06/01/17 08:15 Room Air 06/01/17 08:13 93 06/01/17 08:00 97.9 70 20 148/93 (111) 98 06/01/17 05:55 97.8 74 18 124/66 96 06/01/17 05:37 97.8 73 18 133/76 98 06/01/17 04:00 97.8 75 18 128/77 (94) 98 06/01/17 04:00 Room Air 06/01/17 03:47 76 06/01/17 02:44 98.3 78 18 115/62 95 06/01/17 02:34 98.3 80 18 119/66 96 06/01/17 02:30 98.3 72 18 119/67 97 06/01/17 00:30 Room Air 06/01/17 00:16 98.0 62 18 120/74 96 06/01/17 00:16 98.0 62 18 120/74 96 06/01/17 00:00 69 05/31/17 23:57 97.8 67 18 119/78 97 05/31/17 23:55 97.8 67 18 119/78 (92) 97 05/31/17 20:00 97.9 73 18 135/72 (93) 94 05/31/17 20:00 Room Air 05/31/17 19:48 74 05/31/17 16:00 74 05/31/17 16:00 98.7 75 20 153/78 (103) 96 05/31/17 12:00 98.7 75 20 150/68 (95) 99 05/31/17 12:00 73 06/01/17 06/01/17 06/01/17 07:00 15:00 23:00 Intake Total 1083 ml 321 ml Balance 1083 ml 321 ml Result Diagram: 06/01/17 0800 05/31/17 0720 Laboratory Results Laboratory Tests Test 05/31/17 12:02 05/31/17 14:24 05/31/17 20:13 06/01/17 08:00 White Blood Count 3.1 TH/MM3 3.3 TH/MM3 Red Blood Count 2.62 MIL/MM3 2.36 MIL/MM3 Hemoglobin 9.2 GM/DL 8.5 GM/DL Hematocrit 26.8 % 24.0 % Mean Corpuscular Volume 102.2 FL 101.7 FL Mean Corpuscular Hemoglobin 35.2 PG 36.1 PG Mean Corpuscular Hemoglobin Concent 34.4 % 35.5 % Red Cell Distribution Width 32.0 % 32.4 % Platelet Count 110 TH/MM3 105 TH/MM3 Mean Platelet Volume 8.6 FL 8.0 FL Neutrophils (%) (Auto) 32.8 % 40.6 % Lymphocytes (%) (Auto) 58.5 % 50.6 % Monocytes (%) (Auto) 2.8 % 4.1 % Eosinophils (%) (Auto) 5.6 % 4.4 % Basophils (%) (Auto) 0.3 % 0.3 % Neutrophils # (Auto) 1.0 TH/MM3 1.4 TH/MM3 Lymphocytes # (Auto) 1.8 TH/MM3 1.7 TH/MM3 Monocytes # (Auto) 0.1 TH/MM3 0.1 TH/MM3 Eosinophils # (Auto) 0.2 TH/MM3 0.1 TH/MM3 Basophils # (Auto) 0.0 TH/MM3 0.0 TH/MM3 CBC Comment AUTO DIFF AUTO DIFF Differential Total Cells Counted 100 Neutrophils % (Manual) 46 % Lymphocytes % 43 % Monocytes % 1 % Eosinophils % 9 % Neutrophils # (Manual) 1.5 TH/MM3 Myelocytes 1 % Nucleated Red Blood Cells 3 /100 WBC Differential Comment FINAL DIFF MANUAL Toxic Granulation 1+ Platelet Estimate LOW Platelet Morphology Comment NORMAL Basophilic Stippling FAINT Spherocytes 1+ Acanthocytes 1+ Blood Smear Pathologist Review Reticulocyte Count 2.0 % Absolute Reticulocyte Count 52.0 MIL/L Prothrombin Time 11.1 SEC Prothromb Time International Ratio 1.1 RATIO Activated Partial Thromboplast Time 24.0 SEC Fibrinogen 257 mg/dL Total Bilirubin 1.4 MG/DL Direct Bilirubin 0.3 MG/DL Indirect Bilirubin 1.1 MG/DL Lactate Dehydrogenase 2908 U/L Tumor Marker Alpha Fetoprotein 2.8 NG/ML Administered Medications Medications (Trade) Dose Ordered Sig/Juan Route PRN Reason Start Time Stop Time Status Last Admin Dose Admin Insulin Aspart (NovoLOG SUPPLEMENTAL SCALE) 1 ACHS SLIDING SCALE SQ 05/30/17 21:00 05/31/17 21:20 Levothyroxine Sodium (Synthroid) 112 mcg DAILY@0600 PO 05/31/17 06:00 06/01/17 05:49 Levothyroxine Sodium (Synthroid) 25 mcg DAILY@0600 PO 05/31/17 06:00 06/01/17 05:49 Insulin Detemir (Levemir Inj) 20 units DAILY SQ 06/01/17 09:00 06/01/17 08:03 Sodium Chloride 250 ml @ 15 mls/hr ONCE ONCE IV 05/31/17 20:00 06/01/17 12:39 05/31/17 00:00 Prednisone (Deltasone) 40 mg BID PO 06/01/17 09:00 06/01/17 08:02 Objective Remarks GENERAL: Pleasant middle aged male, sitting up in bed in [facility]. SKIN: Warm and dry. HEAD: Normocephalic. EYES: No injection or drainage. NECK: Supple, trachea midline. CARDIOVASCULAR: Regular rate and rhythm RESPIRATORY: Breath sounds equal bilaterally. No accessory muscle use. GASTROINTESTINAL: Abdomen soft, non-tender, nondistended. EXTREMITIES: No cyanosis NEUROLOGICAL: awake and alert, normal speech. moving all extremities. Assessment/Plan Problem List: (1) Pancytopenia ICD Codes: D61.818 - Other pancytopenia Status: Acute Plan: --unclear etiology --LDH significantly elevated, haptoglobin low, consistent with hemolysis. --trial of FFP for ? of TTP --will obtain bone marrow biopsy --B12 replaced. Assessment 61y/o male with pancytopenia. history of diabetes, hypothyroidism. Ischemic optic neuropathy right eye. Lumbar radiculopathy h/o Macrocytic anemia B12 deficiency Plan 1. await bone marrow biopsy today 2. monitor CBC, LDH Attending Statement The exam, history, and the medical decision-making described in the above note were completed with the assistance of the mid-level provider. I reviewed and agree with the findings presented. I attest that I had a [id number] encounter with the patient on the same day, and personally performed and documented my assessment and findings in the medical record. Signs of hemolysis, smear suggest spherocytosis, abx test negative, coomb's negative. Feels better on steroids in evening. [place] just OK in AM after FFP but urine less orange. Unable to exclude microangiopathic hemolytic process although platelet, renal function stable, no fevers. No significant decrease in bilirubin or LDh after FFP BM biopsy pending. Further recommendation pending on result. Sara Hylton Jun 01, 2017 10:40 Miley Soto MD Jun 01, 2017 19:09
[2017-06-01] MEDS ORDERED: DEXTROSE 5% IN WATE 1000ML INJ 1,000 ML IV SCH (11:00)
[2017-06-01 11:52] LABS: BANDS 1 % (0-6); BASOPHILS 2 % (0-2); BLASTS 2 % (0-0); LYMPHOCYTES 44 % (9-44); METAMYELOCYTES 1 % (0-1); MONOCYTES 2 % (0-8); MYELOCYTES 2 % (0-0); NEUTROPHIL # MANUAL DIFF 1.6 TH/MM3 (1.8-7.7); POLYS (SEG NEUTROPHILS) 43 % (16-70)
[2017-06-01 11:54] LABS: KERATOCYTES OCC (NORMAL)
[2017-06-01 11:55] LABS: OVALOCYTES 1+ (NORMAL)
--- NOTE | 2017-06-01 13:34 | HHI.GIFU ---
Subjective Remarks Pt OOB to chair, family at bedside. No bleeding. wishes to do EGD/colonoscopy as outpt if possible. (Jamila Albarran) Objective Vitals I&O Vital Signs Date Time Temp Pulse Resp B/P (MAP) Pulse Ox O2 Delivery O2 Flow Rate FiO2 06/01/17 09:22 97.8 70 16 141/83 99 06/01/17 09:04 97.9 68 16 152/79 100 06/01/17 08:15 Room Air 06/01/17 08:13 93 06/01/17 08:00 97.9 70 20 148/93 (111) 98 06/01/17 05:55 97.8 74 18 124/66 96 06/01/17 05:37 97.8 73 18 133/76 98 06/01/17 04:00 97.8 75 18 128/77 (94) 98 06/01/17 04:00 Room Air 06/01/17 03:47 76 06/01/17 02:44 98.3 78 18 115/62 95 06/01/17 02:34 98.3 80 18 119/66 96 06/01/17 02:30 98.3 72 18 119/67 97 06/01/17 00:30 Room Air 06/01/17 00:16 98.0 62 18 120/74 96 06/01/17 00:16 98.0 62 18 120/74 96 06/01/17 00:00 69 05/31/17 23:57 97.8 67 18 119/78 97 05/31/17 23:55 97.8 67 18 119/78 (92) 97 05/31/17 20:00 97.9 73 18 135/72 (93) 94 05/31/17 20:00 Room Air 05/31/17 19:48 74 05/31/17 16:00 74 05/31/17 16:00 98.7 75 20 153/78 (103) 96 I/O 05/31/17 05/31/17 05/31/17 06/01/17 06/01/17 06/01/17 07:00 15:00 23:00 07:00 15:00 23:00 Intake Total 430 ml 480 ml 1083 ml 534 ml Balance 430 ml 480 ml 1083 ml 534 ml Intake Oral 480 ml IV Total 125 ml Packed Cells 400 ml FFP 928 ml 514 ml Blood Product IV Normal Saline Flush 30 ml 30 ml 20 ml # Voids 5 # Bowel Movements 1 Laboratory Laboratory Tests Test 05/31/17 14:24 05/31/17 20:13 06/01/17 08:00 White Blood Count 3.1 3.3 Red Blood Count 2.62 2.36 Hemoglobin 9.2 8.5 Hematocrit 26.8 24.0 Mean Corpuscular Volume 102.2 101.7 Mean Corpuscular Hemoglobin 35.2 36.1 Mean Corpuscular Hemoglobin Concent 34.4 35.5 Red Cell Distribution Width 32.0 32.4 Platelet Count 110 105 Mean Platelet Volume 8.6 8.0 Neutrophils (%) (Auto) 32.8 40.6 Lymphocytes (%) (Auto) 58.5 50.6 Monocytes (%) (Auto) 2.8 4.1 Eosinophils (%) (Auto) 5.6 4.4 Basophils (%) (Auto) 0.3 0.3 Neutrophils # (Auto) 1.0 1.4 Lymphocytes # (Auto) 1.8 1.7 Monocytes # (Auto) 0.1 0.1 Eosinophils # (Auto) 0.2 0.1 Basophils # (Auto) 0.0 0.0 CBC Comment AUTO DIFF AUTO DIFF Differential Total Cells Counted 100 100 Neutrophils % (Manual) 46 43 Lymphocytes % 43 44 Monocytes % 1 2 Eosinophils % 9 3 Neutrophils # (Manual) 1.5 1.6 Myelocytes 1 2 Nucleated Red Blood Cells 3 Differential Comment FINAL DIFF MANUAL FINAL DIFF MANUAL Toxic Granulation 1+ Platelet Estimate LOW LOW Platelet Morphology Comment NORMAL NORMAL Basophilic Stippling FAINT Spherocytes 1+ Acanthocytes 1+ Blood Smear Pathologist Review Reticulocyte Count 2.0 Absolute Reticulocyte Count 52.0 Prothrombin Time 11.1 Prothromb Time International Ratio 1.1 Activated Partial Thromboplast Time 24.0 Fibrinogen 257 Band Neutrophils % 1 Basophils % 2 Metamyelocytes 1 Blastocytes 2 Ovalocytes 1+ Keratocytes OCC Total Bilirubin 1.4 Direct Bilirubin 0.3 Indirect Bilirubin 1.1 Lactate Dehydrogenase 2908 Tumor Marker Alpha Fetoprotein 2.8 Imaging Last Impressions Chest CT 05/30/17 1611 Signed Impressions: Service Date/Time: Tuesday, May 30, 2017 17:06 - CONCLUSION: Negative for an acute process. I do not see an etiology for the SOB Onesimo Koo MD FACR Abdomen/Pelvis CT 05/30/17 1611 Signed Impressions: Service Date/Time: Tuesday, May 30, 2017 17:06 - CONCLUSION: Negative for acute process. Onesimo Koo MD FACR Physical Exam HEENT: PERRL; normocephalic; atraumatic; no jaundice. CHEST: CTA CARDIAC: RRR ABDOMEN: Soft, nondistended, nontender; no hepatosplenomegaly; bowel sounds are present in all four quadrants. EXTREMITIES: No clubbing, cyanosis,+ BLEedema. SKIN: Normal; no rash; no jaundice. PRESS OPERATOR AUTOMATIC: No focal deficits; alert and oriented times three. (Jamila Albarran) Assessment and Plan Plan ASSESSMENT - anemia - symptomatic, hgb 6.4 on admission, macrocytic and does have b12 deficiency. Per EMR pt had EGD/colonoscopy 2002 for heme pos stool and EGD was normal, colonoscopy found internal hemorrhoid and stool in cecum. rectal exam in ER neg for blood. CT abd neg. anemia could be multifactorial. he is feeling somewhat better after 2X PRBC. d/w pt EGD and colonoscopy to r/o GIB, timing TBD and pt wishes to pursue as outpt and focus now on hematology work up. HH stable no obvious GI bleeding, guiac negative - mildly elevated AST, tbil - unclear significance. indirect bili > direct, ? hemolysis. pt denies excessive use ETOH or hx heavy drinking. hep panel negative, iron 184H TIBC 206L %sat 89.4H ferritin 536H rest of liver w/u pending - pancytopenia - unclear etiology, hematology following ordered BM bx. smear path review completed PLAN - EGD and colonoscopy as outpt - await bone marrow bx - await rest of liver w/u - notify GI of active bleeding pt seen by myself and DR Guerra and this note is written on his behalf (Jamila Albarran) Physician Comments Seen and eamined with SRUTHI, discussed with Dr. Guaman. Noel in progress for possible leukemia. GI noel on hold. Will sign off. Needs colonoscopy when able as outpt. Thank you (Patricia Guerra MD) Jamila Albarran Jun 01, 2017 13:34 Patricia Guerra MD Jun 01, 2017 13:56
[2017-06-01] MEDS ORDERED: fentaNYL CITRATE 250 MCG/5 ML AMP ONE (14:08)
[2017-06-01] MEDS ORDERED: MIDAZOLAM HCL 2 MG/2 ML VIAL ONE (14:08)
[2017-06-01] MEDS ORDERED: LIDOCAINE HCL 1% 20 ML VIAL ONE (14:34)
--- NOTE | 2017-06-01 15:30 | PD.RAD ---
Post CT Procedure Prog Note Pre Procedure Diagnosis: (1) Pancytopenia Post Procedure Diagnosis: Procedure Date: Jun 01, 2017 Supervising Radiologist: Abhilash Brooke Proceduralist/Assist: sammie perez Estimated blood loss: none Anesthesia: Conscious Sedation Plan of Activity Patient to Unit: ROPU Patient Condition: Good See PACS Report for procedural detail/treatment Abhilash Brooke MD Jun 01, 2017 15:30
--- NOTE | 2017-06-01 16:26 | RADRPT ---
EXAM DATE/TIME: 06/01/2017 15:03 [facility] COMPARISON: No previous studies available for comparison. INDICATIONS : Pancytopenia,symptomatic anemia SEDATION TIME: 30 minutes BIOPSY SITE: Left Ilium MEDICATION(S): 1.) 3 mg midazolam (Versed) IV 2.) 175 mcg fentanyl (Sublimaze) IV DEVICE(S): 1.) 11 gauge On-Control needle MEDICAL HISTORY : Diabetes mellitus type 1. SURGICAL HISTORY : None. ENCOUNTER: Initial ACUITY: 1 day PAIN SCORE: 0/10 LOCATION: Bone marrow left ilium A total of one core specimen(s) were obtained and sent to the laboratory for pathologic evaluation. PROCEDURE: 1. CT guided Left ilium biopsy. Prior to the procedure informed consent was obtained. Any appropriate prior imaging studies were rev iewed. Using automated exposure control and adjustment of the mA and/or kV according to patient size , radiation dose was kept as low as reasonably achievable to obtain optimal diagnostic quality images . DICOM format image data is available electronically for review and comparison. The site was prepped in a sterile fashion. Full sterile technique was used, including cap, mask, shawnee rile gloves and gown and a large sterile sheet. Hand hygiene and 2% chlorhexidine and/or betadine/al cohol prep was utilized per protocol for cutaneous antisepsis. The skin and subcutaneous tissues wer e infiltrated with local anesthetic solution. With CT guidance the previously identified target was localized. Biopsy was performed using the presc ribed needle as above. Following biopsy marrow aspiration was performed with repeat puncture. Adequa te hemostasis was obtained with compression at the puncture site. Follow-up CT scan reveals no hemorrhage. Conscious sedation was performed with the prescribed dosages and duration as above in the presence of an independent trained radiology nurse to assist in the monitoring of the patient. EKG and oximetry remained stable throughout the procedure. The patient tolerated the procedure well and there were no complications. The patient was sent to Radiology Outpatient Unit in stable condition. CONCLUSION: 1. Uncomplicated CT guided bone marrow aspirate. 2. Uncomplicated CT guided bone marrow biopsy. Abhilash Brooke MD on June 01, 2017 at 16:23 Board Certified Radiologist. This report was verified electronically.
[2017-06-01] MEDS ORDERED: ACETAMINOPHEN 325 MG TAB PO PRN (19:15)
[2017-06-01] MEDS ORDERED: SODIUM CHLOR 0.9% 250 ML INJ 250 ML IV ONE (19:15)
[2017-06-01] MEDS ORDERED: diphenhydrAMINE HCL 25 MG CAP PO PRN (19:15)
[2017-06-02] VITALS (26 sets, daily range): BP systolic 109–166; BP diastolic 56–83; PULSE 70–88; RESP 16–20; TEMP 97.7–98.5; O2SAT 96–98
[2017-06-02] MEDS: LEVOTHYROXINE SODIUM 112 MCG TAB PO SCH (05:19)
[2017-06-02] MEDS: LEVOTHYROXINE SODIUM 25 MCG TAB PO SCH (05:19)
[2017-06-02 07:10] LABS: AUTOMATED NEUTROPHIL # 1.9 TH/MM3 (1.8-7.7); BASOPHIL % 0.1 % (0.0-2.0); EOSINOPHIL % 0.2 % (0.0-4.0); HEMATOCRIT 22.5 % (39.0-51.0); HEMOGLOBIN 8.1 GM/DL (13.0-17.0); LYMPH % 29.6 % (9.0-44.0); LYMPHOCYTE # 0.9 TH/MM3 (1.0-4.8); MEAN CELL VOLUME 101.8 FL (80.0-100.0); MEAN CORPUSCULAR HEMOGLOBIN 36.5 PG (27.0-34.0); MEAN CORPUSCULAR HGB CONC 35.9 % (32.0-36.0); MEAN PLATELET VOLUME 7.9 FL (7.0-11.0); MONO % 6.2 % (0.0-8.0); MONOCYTE # 0.2 TH/MM3 (0-0.9); NEUT % 63.9 % (16.0-70.0); PLATELET COUNT 88 TH/MM3 (150-450); RED BLOOD COUNT 2.21 MIL/MM3 (4.50-5.90); RED CELL DISTRIBUTION WIDTH 31.7 % (11.6-17.2); WHITE BLOOD COUNT 2.9 TH/MM3 (4.0-11.0)
[2017-06-02] MEDS: INSULIN ASPART SUPPLEMENTAL SCALE SQ SCH ×4 (08:00→21:00)
[2017-06-02] MEDS: predniSONE 20 MG TAB PO SCH ×2 (08:29→21:27)
[2017-06-02] MEDS: INSULIN DETEMIR 100 UNITS/ML VIAL SQ SCH (08:30)
[2017-06-02] MEDS ORDERED: CYANOCOBALAMIN 1000 MCG/ML VIAL IM ONE ×2 (08:45→11:00)
[2017-06-02 09:48] LABS: CORRECTED NUCLEATED RBC 2 /100 WBC (0-0); LYMPHOCYTES 30 % (9-44); METAMYELOCYTES 1 % (0-1); MONOCYTES 8 % (0-8); MYELOCYTES 1 % (0-0); NEUTROPHIL # MANUAL DIFF 1.8 TH/MM3 (1.8-7.7); NUCLEATED RED BLOOD CELL 2 (0-0); POLYS (SEG NEUTROPHILS) 59 % (16-70)
[2017-06-02 09:49] LABS: KERATOCYTES OCC (NORMAL); TEARDROP RBCS 1+ (NORMAL)
--- NOTE | 2017-06-02 10:00 | HHI.PR ---
Subjective Remarks doing ok. Objective Vitals heart reg lung cta abd s/nt ext no edema Vital Signs Date Time Temp Pulse Resp B/P (MAP) Pulse Ox O2 Delivery O2 Flow Rate FiO2 06/02/17 09:15 98.5 72 18 160/79 98 06/02/17 08:54 97.8 82 18 166/81 97 06/02/17 08:30 97.8 82 18 166/81 (109) 97 06/02/17 08:00 75 06/02/17 07:35 97.8 82 18 166/81 97 06/02/17 07:22 Room Air 06/02/17 05:11 97.8 83 18 145/80 96 06/02/17 04:50 97.9 78 18 150/82 96 06/02/17 04:00 72 06/02/17 04:00 97.8 77 18 140/72 (94) 96 06/02/17 04:00 Room Air 06/02/17 03:30 97.8 88 18 115/63 96 06/02/17 01:28 98.0 72 18 111/62 96 06/02/17 01:11 97.8 73 18 109/56 96 06/02/17 01:00 97.8 73 18 109/56 96 06/02/17 00:15 75 06/02/17 00:00 97.8 82 16 110/58 (75) 97 06/01/17 23:43 Room Air 06/01/17 22:36 97.4 83 18 135/73 96 06/01/17 22:17 97.4 86 18 132/66 95 06/01/17 21:00 97.8 84 17 150/74 (99) 98 06/01/17 20:00 85 06/01/17 20:00 Room Air 06/01/17 16:00 82 16 152/87 (108) 94 06/01/17 16:00 97.9 77 20 167/97 (120) 99 06/01/17 15:45 98.4 18 18 148/87 (107) 94 06/01/17 12:29 80 06/01/17 12:00 97.9 86 20 183/98 (126) 99 06/02/17 06/02/17 06/03/17 15:00 23:00 07:00 Intake Total 342 ml Balance 342 ml FFP 332 ml Blood Product IV Normal Saline Flush 10 ml Result Diagram: 06/02/17 0654 05/31/17 0720 Imaging Last [address] 05/30/17 1611 Signed Impressions: Service Date/Time: Tuesday, May 30, 2017 17:06 - CONCLUSION: Negative for an acute process. I do not see an etiology for the SOB Onesimo Koo MD FACR Abdomen/Pelvis CT 05/30/17 1611 Signed Impressions: Service Date/Time: Tuesday, May 30, 2017 17:06 - CONCLUSION: Negative for acute process. Onesimo Koo MD FACR A/P Problem List: (1) Pancytopenia ICD Codes: D61.818 - Other pancytopenia Status: Acute Plan: 1. new pancytopenia. symptomatic anemia anemia is macrocytic. guiac neg. denies any new medications. hematology wants to exclude mds/acute leukemia/ttp severe b12 def identified and evidence for hemolysis on labs with elevated bili/ldh/low haptoglobin. ?hemolysis related to severe b12. unclear why he has b12 def. Denies hx of celiac dz/gastric surgery/crohns disease. mother also required b12 shots. s/p 2 units blood 05/30. feels much better. s/p 4 units ffp 06/01 bone marrow bx pending and trial of ffp per Dr Soto going for vas cath today b12 shots initiated. will need to arrange outpt b12 injections f/u pending labs increase ssi to high dose novology. steroid hyperglycemia. (2) Diabetes mellitus with insulin therapy ICD Codes: E11.9 - Diabetes mellitus with insulin therapy; Z79.4 - care home ( current) use of insulin Status: Chronic Plan: initiate home basal insulin and ssi (3) Hypothyroidism ICD Codes: E03.9 - Hypothyroidism, unspecified Status: Chronic Nik Delcid MD Jun 02, 2017 10:00
[2017-06-02 10:18] LABS: DIRECT BILIRUBIN ADULT 0.3 MG/DL (0.0-0.2); INDIRECT BILIRUBIN 0.7 MG/DL (0.0-0.8)
[2017-06-02 10:19] LABS: ALBUMIN 3.6 GM/DL (3.4-5.0); ALKALINE PHOSPHATASE 88 U/L (45-117); ALT (GPT) 39 U/L (12-78); AST (GOT) 33 U/L (15-37); BICARBONATE 24.6 MEQ/L (21.0-32.0); BLOOD UREA NITROGEN 13 MG/DL (7-18); CALCIUM 8.5 MG/DL (8.5-10.1); CHLORIDE 103 MEQ/L (98-107); CREATININE 0.77 MG/DL (0.60-1.30); GLOMERULAR FILTRATION RATE 103 ML/MIN (>89); GLUCOSE,RANDOM 289 MG/DL (74-106); SODIUM (NA) 135 MEQ/L (136-145); TOTAL BILIRUBIN ADULT 0.9 MG/DL (0.2-1.0); TOTAL PROTEIN 6.5 GM/DL (6.4-8.2)
--- NOTE | 2017-06-02 12:37 | PD.ONC.PN ---
Subjective Subjective Remarks Afebrile overnight. Patient resting in room with at bedside. No new symptoms overnight. tolerated bone marrow biopsy without difficulty yesterday. Objective Data Date Time Temp Pulse Resp B/P (MAP) Pulse Ox O2 Delivery O2 Flow Rate FiO2 06/02/17 12:26 98.5 81 18 159/83 96 06/02/17 12:02 97.9 73 18 163/81 96 06/02/17 11:12 98.0 71 18 157/79 97 06/02/17 09:15 98.5 72 18 160/79 98 06/02/17 08:54 97.8 82 18 166/81 97 06/02/17 08:30 97.8 82 18 166/81 (109) 97 06/02/17 08:00 75 06/02/17 07:35 97.8 82 18 166/81 97 06/02/17 07:22 Room Air 06/02/17 05:11 97.8 83 18 145/80 96 06/02/17 04:50 97.9 78 18 150/82 96 06/02/17 04:00 72 06/02/17 04:00 97.8 77 18 140/72 (94) 96 06/02/17 04:00 Room Air 06/02/17 03:30 97.8 88 18 115/63 96 06/02/17 01:28 98.0 72 18 111/62 96 06/02/17 01:11 97.8 73 18 109/56 96 06/02/17 01:00 97.8 73 18 109/56 96 06/02/17 00:15 75 06/02/17 00:00 97.8 82 16 110/58 (75) 97 06/01/17 23:43 Room Air 06/01/17 22:36 97.4 83 18 135/73 96 06/01/17 22:17 97.4 86 18 132/66 95 06/01/17 21:00 97.8 84 17 150/74 (99) 98 06/01/17 20:00 85 06/01/17 20:00 Room Air 06/01/17 16:00 82 16 152/87 (108) 94 06/01/17 16:00 97.9 77 20 167/97 (120) 99 06/01/17 15:45 98.4 18 18 148/87 (107) 94 06/02/17 06/02/17 06/02/17 07:00 15:00 23:00 Intake Total 1721 ml 659 ml Balance 1721 ml 659 ml Result Diagram: 06/02/17 0654 06/02/17 0654 Laboratory Results Laboratory Tests Test 06/01/17 14:20 06/02/17 06:54 06/02/17 06:56 White Blood Count 2.9 TH/MM3 Red Blood Count 2.21 MIL/MM3 Hemoglobin 8.1 GM/DL Hematocrit 22.5 % Mean Corpuscular Volume 101.8 FL Mean Corpuscular Hemoglobin 36.5 PG Mean Corpuscular Hemoglobin Concent 35.9 % Red Cell Distribution Width 31.7 % Platelet Count 88 TH/MM3 Mean Platelet Volume 7.9 FL Neutrophils (%) (Auto) 63.9 % Lymphocytes (%) (Auto) 29.6 % Monocytes (%) (Auto) 6.2 % Eosinophils (%) (Auto) 0.2 % Basophils (%) (Auto) 0.1 % Neutrophils # (Auto) 1.9 TH/MM3 Lymphocytes # (Auto) 0.9 TH/MM3 Monocytes # (Auto) 0.2 TH/MM3 Eosinophils # (Auto) 0.0 TH/MM3 Basophils # (Auto) 0.0 TH/MM3 CBC Comment AUTO DIFF Differential Total Cells Counted 100 Neutrophils % (Manual) 59 % Lymphocytes % 30 % Monocytes % 8 % Eosinophils % 1 % Neutrophils # (Manual) 1.8 TH/MM3 Metamyelocytes 1 % Myelocytes 1 % Nucleated Red Blood Cells 2 /100 WBC Differential Comment FINAL DIFF MANUAL Platelet Estimate LOW Platelet Morphology Comment NORMAL Tear Drop Cells 1+ Keratocytes OCC Blood Urea Nitrogen 13 MG/DL Creatinine 0.77 MG/DL Random Glucose 289 MG/DL Total Protein 6.5 GM/DL Albumin 3.6 GM/DL Calcium Level 8.5 MG/DL Alkaline Phosphatase 88 U/L Aspartate Amino Transf (AST/SGOT) 33 U/L Alanine Aminotransferase (ALT/SGPT) 39 U/L Total Bilirubin 0.9 MG/DL Sodium Level 135 MEQ/L Potassium Level 4.4 MEQ/L Chloride Level 103 MEQ/L Carbon Dioxide Level 24.6 MEQ/L Anion Gap 7 MEQ/L Estimat Glomerular Filtration Rate 103 ML/MIN Direct Bilirubin 0.3 MG/DL Indirect Bilirubin 0.7 MG/DL Lactate Dehydrogenase 2244 U/L Haptoglobin 35 MG/DL Imaging Studies Last 24 hours Impressions Bone Biopsy CT 06/01/17 1410 Signed Impressions: Service Date/Time: Thursday, June 01, 2017 15:03 - CONCLUSION: 1. Uncomplicated CT guided bone marrow aspirate. 2. Uncomplicated CT guided bone marrow biopsy. Abhilash Brooke MD Administered Medications Medications (Trade) Dose Ordered Sig/Juan Route PRN Reason Start Time Stop Time Status Last Admin Dose Admin Levothyroxine Sodium (Synthroid) 112 mcg DAILY@0600 PO 05/31/17 06:00 06/02/17 05:19 Levothyroxine Sodium (Synthroid) 25 mcg DAILY@0600 PO 05/31/17 06:00 06/02/17 05:19 Insulin Detemir (Levemir Inj) 20 units DAILY SQ 06/01/17 09:00 06/02/17 08:30 Prednisone (Deltasone) 40 mg BID PO 06/01/17 09:00 06/02/17 08:29 Insulin Aspart (NovoLOG SUPPLEMENTAL SCALE) 1 ACHS SLIDING SCALE SQ 06/02/17 12:00 06/02/17 12:00 Objective Remarks GENERAL: Pleasant middle aged male, upright in chair in nad. SKIN: Warm and dry. HEAD: Normocephalic. EYES: No injection or drainage. NECK: Supple, trachea midline. CARDIOVASCULAR: Regular rate and rhythm RESPIRATORY: Breath sounds equal bilaterally. No accessory muscle use. GASTROINTESTINAL: Abdomen soft, non-tender, nondistended. EXTREMITIES: No cyanosis NEUROLOGICAL: awake, alert, no obvious focal deficit. Assessment/Plan Problem List: (1) Pancytopenia ICD Codes: D61.818 - Other pancytopenia Status: Acute Plan: --likely TTP --LDH significantly elevated, haptoglobin low, consistent with hemolysis. --trial of FFP shows improved LDH, will initiate plasma exchange --s/p bone marrow biopsy on 06/01/17 --B12 replaced. Assessment 61y/o male with pancytopenia. history of diabetes, hypothyroidism. Ischemic optic neuropathy right eye. Lumbar radiculopathy h/o Macrocytic anemia B12 deficiency Plan 1. UPDATE: will cancel perma-cath placement as patient will no longer need plasma exchange after pathology review. continue steroids and monitor CBC, LDH 2. face sheet faxed to new patient referrals for follow up in one week. Attending Statement The exam, history, and the medical decision-making described in the above note were completed with the assistance of the mid-level provider. I reviewed and agree with the findings presented. I attest that I had a [id number] encounter with the patient on the same day, and personally performed and documented my assessment and findings in the medical record. Reviewed smear from aspirate with pathologist, megaloblastic changes acquired, noted some dysplastic changes multilobated NRBC, but most prominent erythroid turn over consistent with hemolysis. Discussed with Reference lab in [place], noted 15% plasma cells suggest a plasma cell dyscrasia, lambda restricted. The above explain response to steroids, and hemolysis seen. Continue steroids and PPI. Discussed with primary team, anticipate DC home tomorrow on steroids pending final pathology report. SPEP, IEP and 24 hour urine will be collected. Cont B12 supplement - acquired deficiency. Sara Hylton Jun 02, 2017 12:37 Miley Soto MD Jun 02, 2017 18:19
[2017-06-02 14:52] LABS: SMOOTH MUSCLE TOTAL AUTOABS Negative (Negative)
[2017-06-02] MEDS ORDERED: PANTOPRAZOLE SOD 20 MG DELAYED RELEASE TAB PO ONE (18:30)
[2017-06-02 21:22] LABS: ALPHA-1-ANTITRYPSIN 137 mg/dL (100 - 190)
[2017-06-02 23:51] LABS: PARVOVIRUS B19 IGG 4.2; PARVOVIRUS B19 IGM LESS THAN 0.1
[2017-06-03] VITALS (12 sets, daily range): BP systolic 106–172; BP diastolic 52–83; PULSE 59–86; RESP 18–21; TEMP 97.6–98.6; O2SAT 94–100
[2017-06-03] MEDS: LEVOTHYROXINE SODIUM 25 MCG TAB PO SCH (05:25)
[2017-06-03] MEDS: LEVOTHYROXINE SODIUM 112 MCG TAB PO SCH (05:25)
[2017-06-03 07:46] LABS: AUTOMATED NEUTROPHIL # 3.3 TH/MM3 (1.8-7.7); HEMOGLOBIN 7.4 GM/DL (13.0-17.0); LYMPH % 22.7 % (9.0-44.0); LYMPHOCYTE # 1.1 TH/MM3 (1.0-4.8); MEAN CELL VOLUME 102.8 FL (80.0-100.0); MEAN CORPUSCULAR HEMOGLOBIN 36.3 PG (27.0-34.0); MEAN CORPUSCULAR HGB CONC 35.3 % (32.0-36.0); MEAN PLATELET VOLUME 8.2 FL (7.0-11.0); MONO % 9.9 % (0.0-8.0); MONOCYTE # 0.5 TH/MM3 (0-0.9); NEUT % 67.4 % (16.0-70.0); PLATELET COUNT 94 TH/MM3 (150-450); RED BLOOD COUNT 2.04 MIL/MM3 (4.50-5.90); RED CELL DISTRIBUTION WIDTH 32.5 % (11.6-17.2); WHITE BLOOD COUNT 4.9 TH/MM3 (4.0-11.0)
[2017-06-03 08:55] LABS: CORRECTED NUCLEATED RBC 4 /100 WBC (0-0); LYMPHOCYTES 24 % (9-44); METAMYELOCYTES 3 % (0-1); MONOCYTES 7 % (0-8); MYELOCYTES 2 % (0-0); NEUTROPHIL # MANUAL DIFF 3.4 TH/MM3 (1.8-7.7); NUCLEATED RED BLOOD CELL 4 (0-0); POLYS (SEG NEUTROPHILS) 64 % (16-70)
[2017-06-03 08:56] LABS: TEARDROP RBCS 1+ (NORMAL)
[2017-06-03 08:58] LABS: KERATOCYTES OCC (NORMAL)
[2017-06-03 08:59] LABS: POLYCHROMASIA 3.4 % (0.0-1.9)
[2017-06-03 09:00] LABS: HOWELL-JOLLY BODIES PRESENT (NONE SEEN)
[2017-06-03] MEDS ORDERED: CYANOCOBALAMIN 1000 MCG/ML VIAL IM ONE (09:00)
[2017-06-03] MEDS: predniSONE 20 MG TAB PO SCH (09:34)
[2017-06-03] MEDS: INSULIN DETEMIR 100 UNITS/ML VIAL SQ SCH (09:35)
[2017-06-03] MEDS: INSULIN ASPART SUPPLEMENTAL SCALE SQ SCH ×3 (09:35→17:09)
[2017-06-03] MEDS ORDERED: PRED20 PO (10:59)
[2017-06-03] MEDS ORDERED: NOVOLOGSS SQ (10:59)
--- NOTE | 2017-06-03 11:03 | HHI.DCPOC ---
Discharge Care Plan Diagnosis: (1) Multiple myeloma (2) Pancytopenia (3) Symptomatic anemia (4) B12 deficiency Goals to Promote Your Health * To prevent worsening of your condition and complications * To maintain your health at the optimal level Directions to Meet Your Goals Take your medications as prescribed Follow your dietary instruction Follow activity as directed Keep your appointments as scheduled Take your immunizations and boosters as scheduled If your symptoms worsen call your PCP, if no PCP go to Urgent Care Center or Emergency Room Smoking is Dangerous to Your Health. Avoid second hand smoke Call the 24-hour hour crisis hotline for domestic abuse at Nik Delcid MD Jun 03, 2017 11:03
--- NOTE | 2017-06-03 11:06 | HHI.DS ---
Discharge Summary Admission Date May 30, 2017 at 18:08 Discharge Date: Jun 03, 2017 Admitting Diagnosis symptomatic anemia (1) Multiple myeloma Diagnosis: Principal ICD Codes: C90.00 - Multiple myeloma not having achieved remission (2) B12 deficiency Diagnosis: Principal ICD Codes: E53.8 - Deficiency of other specified B group vitamins (3) Pancytopenia Diagnosis: Principal ICD Codes: D61.818 - Other pancytopenia Status: Acute (4) Hypothyroidism Diagnosis: Secondary ICD Codes: E03.9 - Hypothyroidism, unspecified Status: Chronic (5) Diabetes mellitus with insulin therapy Diagnosis: Secondary ICD Codes: E11.9 - Diabetes mellitus with insulin therapy; 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 Per patient he was sent here by Dr. Sigala for evaluation of anemia. Patient's hemoglobin was 7 and outpatient labs and he was reportedly asymptomatic. Has not been significantly anemic in the past.. He denies any bleeding of any kind. Denies any changes in stool. Per patient about a month ago he developed cold-like symptoms that improved but he continued to have the weakness and shortness of breath with exertion afterward which is unusual for him. Per patient he was told today that he needed to come here to get a blood transfusion. He denies any abdominal pain. No urinary or bowel movement issues. No cough or runny nose. Denies any chest pain, but has been having some shortness of breath with exertion. Feels some mild dizziness. Has no allergies to medication. No headache. No blurred vision and double vision. Denies regular use of alcohol or nonsteroidals. He is currently receiving packed red blood cell transfusion and appears comfortable. His only complaint presently is that he's hungry. CBC/BMP: 06/03/17 0625 06/02/17 0654 Significant Findings Laboratory Tests Test 05/31/17 12:02 05/31/17 14:24 05/31/17 20:13 06/01/17 08:00 Intrinsic Factor Blocking Antibody POSITIVE (NEGATIVE) White Blood Count 3.1 TH/MM3 (4.0-11.0) 3.3 TH/MM3 (4.0-11.0) Red Blood Count 2.62 MIL/MM3 (4.50-5.90) 2.36 MIL/MM3 (4.50-5.90) Hemoglobin 9.2 GM/DL (13.0-17.0) 8.5 GM/DL (13.0-17.0) Hematocrit 26.8 % (39.0-51.0) 24.0 % (39.0-51.0) Mean Corpuscular Volume 102.2 FL (80.0-100.0) 101.7 FL (80.0-100.0) Mean Corpuscular Hemoglobin 35.2 PG (27.0-34.0) 36.1 PG (27.0-34.0) Red Cell Distribution Width 32.0 % (11.6-17.2) 32.4 % (11.6-17.2) Platelet Count 110 TH/MM3 (150-450) 105 TH/MM3 (150-450) Lymphocytes (%) (Auto) 58.5 % (9.0-44.0) 50.6 % (9.0-44.0) Eosinophils (%) (Auto) 5.6 % (0.0-4.0) 4.4 % (0.0-4.0) Neutrophils # (Auto) 1.0 TH/MM3 (1.8-7.7) 1.4 TH/MM3 (1.8-7.7) Eosinophils % 9 % (0-4) Neutrophils # (Manual) 1.5 TH/MM3 (1.8-7.7) 1.6 TH/MM3 (1.8-7.7) Myelocytes 1 % (0-0) 2 % (0-0) Nucleated Red Blood Cells 3 /100 WBC (0-0) Toxic Granulation 1+ (NORMAL) Platelet Estimate LOW (NORMAL) LOW (NORMAL) Basophilic Stippling FAINT (NORMAL) Spherocytes 1+ (NORMAL) Acanthocytes 1+ (NORMAL) Activated Partial Thromboplast Time 24.0 SEC (24.3-30.1) Blastocytes 2 % (0-0) Ovalocytes 1+ (NORMAL) Total Bilirubin 1.4 MG/DL (0.2-1.0) Direct Bilirubin 0.3 MG/DL (0.0-0.2) Indirect Bilirubin 1.1 MG/DL (0.0-0.8) Lactate Dehydrogenase 2908 U/L (87-241) Test 06/01/17 14:20 06/02/17 06:54 06/02/17 06:56 06/03/17 06:25 White Blood Count 2.9 TH/MM3 (4.0-11.0) Red Blood Count 2.21 MIL/MM3 (4.50-5.90) 2.04 MIL/MM3 (4.50-5.90) Hemoglobin 8.1 GM/DL (13.0-17.0) 7.4 GM/DL (13.0-17.0) Hematocrit 22.5 % (39.0-51.0) 21.0 % (39.0-51.0) Mean Corpuscular Volume 101.8 FL (80.0-100.0) 102.8 FL (80.0-100.0) Mean Corpuscular Hemoglobin 36.5 PG (27.0-34.0) 36.3 PG (27.0-34.0) Red Cell Distribution Width 31.7 % (11.6-17.2) 32.5 % (11.6-17.2) Platelet Count 88 TH/MM3 (150-450) 94 TH/MM3 (150-450) Lymphocytes # (Auto) 0.9 TH/MM3 (1.0-4.8) Myelocytes 1 % (0-0) 2 % (0-0) Nucleated Red Blood Cells 2 /100 WBC (0-0) 4 /100 WBC (0-0) Platelet Estimate LOW (NORMAL) LOW (NORMAL) Tear Drop Cells 1+ (NORMAL) 1+ (NORMAL) Random Glucose 289 MG/DL (74-106) Sodium Level 135 MEQ/L (136-145) Direct Bilirubin 0.3 MG/DL (0.0-0.2) Lactate Dehydrogenase 2244 U/L (87-241) 1886 U/L (87-241) Monocytes (%) (Auto) 9.9 % (0.0-8.0) Metamyelocytes 3 % (0-1) Polychromasia 3.4 % (0.0-1.9) Hospital Course (1) Pancytopenia 1. new pancytopenia. symptomatic anemia anemia is macrocytic. guiac neg. denies any new medications. hematology wants to exclude mds/acute leukemia/ttp severe b12 def identified and evidence for hemolysis on labs with elevated bili/ldh/low haptoglobin. - Pt underwent bone marrow bx and preliminarily shows 15%plasma cells concerning for plasma cell neoplasm such as multiple myeloma -b12 def presumed secondary to myeloma process. clearly hemolysis related to the myeloma. will give another unit of blood today and continue prednisone 40mg po bid to be managed by dr Minor. f/u pending studies and pt to do 24hr urine upep and immunofix.called lab and they wanted me to order 24hr urine then the other 2 tests separately. f/u Tuesday dr Minor. s/p 2 units blood 05/30. s/p 4 units ffp 06/01 high dose novology ssi while on steroids for hyperlycemia. ( Pt Condition on Discharge: Stable Discharge Disposition: Discharge Home Discharge Instructions DIET: Follow Instructions for: Diabetic Diet Activities you can perform: Regular-No Restrictions Follow up Referrals: Oncology - 06/06/[address] MINOR New Medications: Insulin Aspart Inj (Novolog Inj) 100 Unit/Ml Inj 5-25 UNIT SQ ACHS SLIDING SCALE for HYPERGLYCEMIA for 30 Days, INJECTION Prednisone (Prednisone) 20 Mg Tab 40 MG PO BID for HEMOLYSIS for 14 Days, #56 TAB Continued Medications: Insulin Glargine Inj (Lantus Inj) 1,000 Unit/10 Ml Vial 20 UNITS SQ DAILY for Blood Sugar Management, VIAL 0 Refills Levothyroxine (Synthroid) 137 Mcg Tab 137 MCG PO DAILY for Thyroid, #30 TAB 0 Refills Discontinued Medications: Insulin Aspart Inj (Novolog Inj) 1,000 Unit/10 Ml Vial 0 SQ DIRECTED for Blood Sugar Management, #10 ML 0 Refills Sliding Scale as directed. Nik Delcid MD Jun 03, 2017 11:06
--- NOTE | 2017-06-03 11:50 | PD.ONC.PN ---
Subjective Subjective Remarks Afebrile overnight. Patient ready and eager to go home. No complaints. at bedside. Objective Data Date Time Temp Pulse Resp B/P (MAP) Pulse Ox O2 Delivery O2 Flow Rate FiO2 06/03/17 08:09 98.4 67 21 154/71 (98) 94 06/03/17 08:00 61 06/03/17 08:00 Room Air 06/03/17 04:00 59 06/03/17 03:33 97.6 63 20 118/61 (80) 97 06/03/17 00:00 59 06/03/17 00:00 98.4 62 19 106/52 (70) 98 06/02/17 20:00 79 06/02/17 20:00 Room Air 06/02/17 20:00 98.5 81 20 122/60 (80) 97 06/02/17 18:58 98.2 75 18 132/64 98 06/02/17 17:15 98.5 70 18 137/68 97 06/02/17 16:52 97.7 73 18 148/71 97 06/02/17 16:15 97.9 72 18 151/70 (97) 97 06/02/17 16:00 72 06/02/17 15:35 97.9 72 18 151/70 97 06/02/17 12:30 98.2 87 18 163/79 (107) 97 06/02/17 12:26 98.5 81 18 159/83 96 06/02/17 12:02 97.9 73 18 163/81 96 06/02/17 12:00 73 06/03/17 06/03/17 06/03/17 07:00 15:00 23:00 Intake Total 480 ml Balance 480 ml Result Diagram: 06/03/17 0625 06/02/17 0654 Laboratory Results Laboratory Tests Test 06/03/17 06:25 White Blood Count 4.9 TH/MM3 Red Blood Count 2.04 MIL/MM3 Hemoglobin 7.4 GM/DL Hematocrit 21.0 % Mean Corpuscular Volume 102.8 FL Mean Corpuscular Hemoglobin 36.3 PG Mean Corpuscular Hemoglobin Concent 35.3 % Red Cell Distribution Width 32.5 % Platelet Count 94 TH/MM3 Mean Platelet Volume 8.2 FL Neutrophils (%) (Auto) 67.4 % Lymphocytes (%) (Auto) 22.7 % Monocytes (%) (Auto) 9.9 % Eosinophils (%) (Auto) 0.0 % Basophils (%) (Auto) 0.0 % Neutrophils # (Auto) 3.3 TH/MM3 Lymphocytes # (Auto) 1.1 TH/MM3 Monocytes # (Auto) 0.5 TH/MM3 Eosinophils # (Auto) 0.0 TH/MM3 Basophils # (Auto) 0.0 TH/MM3 CBC Comment AUTO DIFF Differential Total Cells Counted 100 Neutrophils % (Manual) 64 % Lymphocytes % 24 % Monocytes % 7 % Neutrophils # (Manual) 3.4 TH/MM3 Metamyelocytes 3 % Myelocytes 2 % Nucleated Red Blood Cells 4 /100 WBC Differential Comment FINAL DIFF MANUAL Platelet Estimate LOW Platelet Morphology Comment NORMAL Polychromasia 3.4 % Tear Drop Cells 1+ [place] Bodies PRESENT Keratocytes OCC Lactate Dehydrogenase 1886 U/L Total Protein 6.8 GM/DL Immunoglobulin G Total 843 MG/DL Immunoglobulin A 173 MG/DL Immunoglobulin M 54 MG/DL Administered Medications Medications (Trade) Dose Ordered Sig/Juan Route PRN Reason Start Time Stop Time Status Last Admin Dose Admin Levothyroxine Sodium (Synthroid) 112 mcg DAILY@0600 PO 05/31/17 06:00 06/03/17 05:25 Levothyroxine Sodium (Synthroid) 25 mcg DAILY@0600 PO 05/31/17 06:00 06/03/17 05:25 Insulin Detemir (Levemir Inj) 20 units DAILY SQ 06/01/17 09:00 06/03/17 09:35 Prednisone (Deltasone) 40 mg BID PO 06/01/17 09:00 06/03/17 09:34 Insulin Aspart (NovoLOG SUPPLEMENTAL SCALE) 1 ACHS SLIDING SCALE SQ 06/02/17 12:00 06/03/17 09:35 Objective Remarks GENERAL: Pleasant middle aged male, sitting up [facility] SKIN: Warm and dry. HEAD: Normocephalic. EYES: No injection or drainage. NECK: Supple, trachea midline. CARDIOVASCULAR: Regular rate and rhythm RESPIRATORY: Breath sounds equal bilaterally. No accessory muscle use. GASTROINTESTINAL: Abdomen soft, non-tender, nondistended. EXTREMITIES: No cyanosis NEUROLOGICAL: awake, alert, normal speech. moving all extremities. Assessment/Plan Problem List: (1) Pancytopenia ICD Codes: D61.818 - Other pancytopenia Status: Acute Plan: 06/03/17: give 1 unit pRBC prior to discharge. follow up Tuesday or Tuesday next week. 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 The above explain response to steroids, and hemolysis seen. Continue steroids and PPI. Discussed with primary team, anticipate DC home tomorrow on steroids pending final pathology report. SPEP, IEP and 24 hour urine will be collected. Cont B12 supplement - acquired deficiency. Assessment 61y/o male with pancytopenia. history of diabetes, hypothyroidism. Ischemic optic neuropathy right eye. Lumbar radiculopathy h/o Macrocytic anemia B12 deficiency Plan 1. give 1unit pRBC 2. ok to d/c 3. follow up with Dr. Soto Tuesday or Tuesday of next week. Sara Hylton Jun 03, 2017 11:50
[2017-06-03 17:50] LABS: CERULOPLASMIN 28 mg/dL (18-36)
[2017-06-06 21:16] LABS: ALB/GLOB RATIO (SPE) 1.95 (1.39-2.23)
[2017-06-08 03:49] LABS: KAPPA/LAMBDA FREE 0.04 (0.26-1.65)
[2017-06-09 03:50] LABS: MITOCHONDRIAL ABS LESS THAN 20.0 U (<=20.0)
== END 2017-06-03 18:06 | disposition home or self-care (01) | DRG 841 ==
LOC: NEPE 14:46 → NEDA 18:08 → N04B 21:44
PROVIDERS: ADMIT Hospitalist; ATTEND Hospitalist
PROC: 30253N1 (ICD-10-PCS; 2017-05-30)
PROC: 07DR3ZX Extraction of Iliac Bone Marrow, Percutaneous Approach, Diagnostic (ICD-10-PCS; principal; 2017-06-01)
PROC: 30233P1 Transfusion of Nonautologous Frozen Red Cells into Peripheral Vein, Percutaneous Approach (ICD-10-PCS; 2017-06-01)
DX: C90.00 Multiple myeloma not having achieved remission (principal); D61.818 Other pancytopenia; E11.649 Type 2 diabetes mellitus with hypoglycemia without coma; D51.9 Vitamin B12 deficiency anemia, unspecified; D50.9 Iron deficiency anemia, unspecified; R63.0 Anorexia; E03.9 Hypothyroidism, unspecified; D64.9 Anemia, unspecified; M50.30 Other cervical disc degeneration, unspecified cervical region; M54.16 Radiculopathy, lumbar region; H47.011 Ischemic optic neuropathy, right eye; H91.90 Unspecified hearing loss, unspecified ear; Z79.4 Long term (current) use of insulin; Z83.3 Family history of diabetes mellitus
CPT/HCPCS: 36430; 38222; 71260; 74177; 77012; 80053; 80074; 81050; 82103; 82105; 82247; 82248; 82390; 82607; 82728; 82746; 82784; 82948; 83010; 83520; 83540; 83550; 83615; 83690; 83883; 84156; 84165; 84166; 84439; 84443; 85007; 85025; 85027; 85044; 85060; 85097; 85384; 85397; 85610; 85730; 86038; 86255; 86335; 86340; 86703; 86747; 86850; 86880; 86900; 86901; 86920; 86927; 88305; 88311; 88313; 88341; 88342; 99151; 99152; 99153; 99285; C1830; J1815; J2250; J3010; J3420; J7050; J7070; J7512; P9016; P9017; Q9967